=== PATIENT | female | born 1955 | race Caucasian/White ===

== ENCOUNTER → 2017-10-13 | Outpatient (CLI) | payer OTHER ==
[~2017-10-13] MED LIST: AZIT250 PO; BUDE6HFA INH; CEFD300 PO; CLON.5 PO; COMBIVENT RESPIM4 GM INH; COPAXIN; DULO30 PO; DULO60 PO; ERGO400 PO; FISH1000 PO; FURO40 PO; GABA100 PO; GABA600 PO; HYDACE5 PO; LAMO100 PO; LAMO25 PO; LISI5 PO; MELO7.5 PO; METH10; OMEPRAZOLE MAGN20 MG PO; ONDA4ODT MM; POTA10T PO; POTCHL10ER PO; PRED10 PO; PREG50; RANI150; SIMV10 PO; SULTRIDS PO; TRAZ100 PO
[2017-10-16 15:17] LABS: HPV Genotype 16 Not Detected (NOTDET); HPV Genotype 18 Not Detected (NOTDET)
[2017-10-25 07:41] LABS: HPV High Risk Other Not Detected (NOTDET)
== END | disposition home or self-care (01) ==
LOC: LAB 10:06
PROVIDERS: Nurse Practitioner Women's Health
DX: Z12.4 Encounter for screening for malignant neoplasm of cervix (principal); Z91.89 Other specified personal risk factors, not elsewhere classified
CPT/HCPCS: 87624; G0123

== ENCOUNTER → 2017-12-02 | Outpatient (CLI) | payer OTHER | LOC: LAB 13:48 | DX: N39.0 Urinary tract infection, site not specified (principal) | CPT/HCPCS: 87077; 87086; 87186 ==

== ENCOUNTER 2018-06-04 07:49 | Inpatient (IN) | payer OTHER ==
[~2018-06-04] VITALS: Ht 157.5 cm; Wt 105.0 kg
[~2018-06-04 07:49] MED LIST changes: -AZIT250 PO; -BUDE6HFA INH; -CEFD300 PO; -CLON.5 PO; -COMBIVENT RESPIM4 GM INH; -MELO7.5 PO; -POTCHL10ER PO; -PRED10 PO; -TRAZ100 PO
[2018-06-04 08:33] LABS: Source, Urine Clean Catch
[2018-06-04 08:38] LABS: Bilirubin, Urine Neg (Neg); Blood, Urine 5+ (Neg); Glucose Qualitative, Urine Neg (Neg); Ketones, Urine 2+ (Neg); Leukocyte Esterase, Urine 3+ (Neg); Nitrite, Urine Neg (Neg); Protein, Urine 2+ (Neg); Urobilinogen, Urine 2+ (Normal)
[2018-06-04 08:55] LABS: Appearance, Urine Cloudy (Clear); Color, Urine Yellow (P-Yellow)
[2018-06-04 08:56] LABS: White Blood Cells, Urine 50-100 /hpf (0-5)
[2018-06-04 08:59] LABS: Bacteria Many /hpf; Squamous Epithelial Cells Few /hpf (Few)
[2018-06-04] MEDS ORDERED: CLON.5 PO (09:35)
[2018-06-04] MEDS ORDERED: MELO7.5 PO (09:36)
[2018-06-04] MEDS ORDERED: TRAZ100 PO (09:37)
[2018-06-04 09:38] LABS: BASOPHILS ABSOLUTE AUTO 0.05 K/mm3 (0.00-0.23); BASOPHILS PERCENT AUTO 0 % (0-2); EOSINOPHILS PERCENT AUTO 0 % (0-6); Hematocrit 52.8 % (33.0-51.0); IMMATURE GRAN PERCENT AUTO 1 % (0-1); LYMPHOCYTES ABSOLUTE AUTO 1.84 K/mm3 (0.84-5.20); LYMPHOCYTES PERCENT AUTO 11 % (21-46); MONOCYTES ABSOLUTE AUTO 1.02 K/mm3 (0.16-1.47); MONOCYTES PERCENT AUTO 6 % (4-13); Mean Corpuscular HGB 28.5 pg (26.0-34.0); Mean Corpuscular HGB Conc 32.2 g/dL (31.5-36.5); Mean Corpuscular Volume 88 fL (80-100); Mean Platelet Volume 9.8 fL (9.1-12.4); NEUTROPHILS ABSOLUTE AUTO 13.08 K/mm3 (1.96-9.15); NEUTROPHILS PERCENT AUTO 81 % (41-73); Platelet Count 89 K/mm3 (150-400); RDW Coefficient Variation 13.2 % (11.7-14.2); RDW Standard Deviation 42.9 fL (35.1-46.3); Red Blood Cell Count 5.97 M/mm3 (3.80-5.20); White Blood Cell Count 16.09 K/mm3 (4.00-11.30)
[2018-06-04 09:56] LABS: Albumin, Blood 3.2 g/dL (3.4-5.0); Albumin/Globulin Ratio 0.8 (0.8-1.8); Bun/Creatinine Ratio 15.9 (12.0-20.0); Calcium, Blood 8.3 mg/dL (8.5-10.1); Creatinine, Blood 1.45 mg/dL (0.40-1.00); Potassium, Blood 4.3 mmol/L (3.5-5.5); Total Protein, Blood 7.2 g/dL (6.4-8.2)
[2018-06-04 12:08] LABS: PCO2 Arterial 49.9 mmHg (35-45); PO2 Arterial 33.2 mmHg (80-100); pH Blood Arterial 7.34 (7.35-7.45)
[2018-06-04] MEDS ORDERED: POTCHL10ER PO (15:36)
[2018-06-05 03:41] LABS: PCO2 Arterial 45.4 mmHg (35-45); PO2 Arterial 75.8 mmHg (80-100); pH Blood Arterial 7.31 (7.35-7.45)
[2018-06-05 04:35] LABS: BASOPHILS ABSOLUTE AUTO 0.01 K/mm3 (0.00-0.23); BASOPHILS PERCENT AUTO 0 % (0-2); EOSINOPHILS PERCENT AUTO 0 % (0-6); Hematocrit 45.2 % (33.0-51.0); Hemoglobin 14.1 g/dL (11.5-16.0); IMMATURE GRAN PERCENT AUTO 2 % (0-1); LYMPHOCYTES ABSOLUTE AUTO 1.42 K/mm3 (0.84-5.20); LYMPHOCYTES PERCENT AUTO 9 % (21-46); MONOCYTES ABSOLUTE AUTO 0.32 K/mm3 (0.16-1.47); MONOCYTES PERCENT AUTO 2 % (4-13); Mean Corpuscular HGB 28.7 pg (26.0-34.0); Mean Corpuscular HGB Conc 31.2 g/dL (31.5-36.5); Mean Platelet Volume 10.5 fL (9.1-12.4); NEUTROPHILS ABSOLUTE AUTO 13.83 K/mm3 (1.96-9.15); NEUTROPHILS PERCENT AUTO 87 % (41-73); Platelet Count 76 K/mm3 (150-400); RDW Coefficient Variation 13.4 % (11.7-14.2); RDW Standard Deviation 45.4 fL (35.1-46.3); Red Blood Cell Count 4.92 M/mm3 (3.80-5.20); White Blood Cell Count 15.88 K/mm3 (4.00-11.30)
[2018-06-05 04:39] LABS: Mean Corpuscular Volume 92 fL (80-100)
[2018-06-05 04:57] LABS: BAND PERCENT MAN 14 % (0-8); BASOPHILS PERCENT MAN 0 % (0-2); EOSINOPHILS PERCENT MAN 0 % (0-6); LYMPHOCYTES ABSOLUTE MAN 0.63 K/mm3 (0.84-5.20); LYMPHOCYTES PERCENT MAN 4 % (21-46); MONOCYTES PERCENT MAN 0 % (4-13); NEUTROPHILS ABSOLUTE MAN 15.24 K/mm3 (1.96-9.15); SEG NEUTROPHILS PERCENT MAN 82 % (41-73); TOTAL CELLS COUNTED 100
[2018-06-05 04:58] LABS: Alanine Aminotransfer (ALT/SGP 16 U/L (12-78); Albumin, Blood 2.5 g/dL (3.4-5.0); Albumin/Globulin Ratio 0.7 (0.8-1.8); Alk Phos 71 U/L (50-136); Anion Gap 6 mmol/L (6-16); Aspartate Aminotrans (AST/SGOT 16 U/L (12-37); Bilirubin, Total 0.7 mg/dL (0.1-1.0); Blood Urea Nitrogen 21 mg/dL (8-24); Bun/Creatinine Ratio 22.3 (12.0-20.0); CO2, Blood 25 mmol/L (21-32); Calcium, Blood 7.3 mg/dL (8.5-10.1); Chloride, Blood 112 mmol/L (98-108); Creatinine, Blood 0.94 mg/dL (0.40-1.00); Globulin, Blood 3.5 g/dL (2.2-4.0); Glomerular Filtration Rate >60 (60-); Glucose, Blood 135 mg/dL (70-99); Potassium, Blood 4.2 mmol/L (3.5-5.5); Sodium, Blood 143 mmol/L (136-145)
[2018-06-06 08:34] LABS: BASOPHILS ABSOLUTE AUTO 0.01 K/mm3 (0.00-0.23); BASOPHILS PERCENT AUTO 0 % (0-2); EOSINOPHILS PERCENT AUTO 0 % (0-6); Hematocrit 42.4 % (33.0-51.0); Hemoglobin 13.6 g/dL (11.5-16.0); IMMATURE GRAN ABSOLUTE AUTO 0.32 K/mm3 (0.00-0.10); IMMATURE GRAN PERCENT AUTO 2 % (0-1); LYMPHOCYTES ABSOLUTE AUTO 1.54 K/mm3 (0.84-5.20); LYMPHOCYTES PERCENT AUTO 12 % (21-46); MONOCYTES ABSOLUTE AUTO 0.49 K/mm3 (0.16-1.47); MONOCYTES PERCENT AUTO 4 % (4-13); Mean Corpuscular HGB 28.8 pg (26.0-34.0); Mean Corpuscular HGB Conc 32.1 g/dL (31.5-36.5); Mean Corpuscular Volume 90 fL (80-100); Mean Platelet Volume 11.3 fL (9.1-12.4); NEUTROPHILS ABSOLUTE AUTO 10.93 K/mm3 (1.96-9.15); NEUTROPHILS PERCENT AUTO 82 % (41-73); Platelet Count 67 K/mm3 (150-400); RDW Coefficient Variation 13.4 % (11.7-14.2); Red Blood Cell Count 4.72 M/mm3 (3.80-5.20); White Blood Cell Count 13.29 K/mm3 (4.00-11.30)
[2018-06-06 08:44] LABS: Anion Gap 6 mmol/L (6-16); Blood Urea Nitrogen 21 mg/dL (8-24); Bun/Creatinine Ratio 29.2 (12.0-20.0); CO2, Blood 26 mmol/L (21-32); Calcium, Blood 8.1 mg/dL (8.5-10.1); Chloride, Blood 112 mmol/L (98-108); Creatinine, Blood 0.72 mg/dL (0.40-1.00); Glomerular Filtration Rate >60 (60-); Glucose, Blood 147 mg/dL (70-99); Potassium, Blood 4.1 mmol/L (3.5-5.5); Sodium, Blood 144 mmol/L (136-145)
[2018-06-06] MEDS ORDERED: AZIT250 PO (12:28)
[2018-06-06] MEDS ORDERED: PRED10 PO (12:32)
[2018-06-06] MEDS ORDERED: BUDE6HFA INH (12:33)
[2018-06-06] MEDS ORDERED: CEFD300 PO (12:35)
[2018-06-06] MEDS ORDERED: COMBIVENT RESPIM4 GM INH (12:37)
== END 2018-06-06 13:01 | disposition home or self-care (01) | DRG 871 ==
LOC: ER 07:49 → ICUW 07:50 → ER 07:50 → PCU 13:48 → ICUW 13:49 → PCU 06-05 14:40
PROVIDERS: Emergency Medicine; Internal Medicine; Internal Medicine Critical Care Medicine
DX: A41.9 Sepsis, unspecified organism (principal); J18.9 Pneumonia, unspecified organism; J96.02 Acute respiratory failure with hypercapnia; J96.01 Acute respiratory failure with hypoxia; N39.0 Urinary tract infection, site not specified; E87.2 Acidosis; N17.9 Acute kidney failure, unspecified; J44.1 Chronic obstructive pulmonary disease with (acute) exacerbation; J44.0 Chronic obstructive pulmonary disease with (acute) lower respiratory infection; Z68.41 Body mass index [BMI] 40.0-44.9, adult; R65.20 Severe sepsis without septic shock; G35 Multiple sclerosis; I10 Essential (primary) hypertension; G47.33 Obstructive sleep apnea (adult) (pediatric); E66.01 Morbid (severe) obesity due to excess calories; Z66 Do not resuscitate; F17.210 Nicotine dependence, cigarettes, uncomplicated; Z99.81 Dependence on supplemental oxygen; Z88.5 Allergy status to narcotic agent; Z88.8 Allergy status to other drugs, medicaments and biological substances; Z79.1 Long term (current) use of non-steroidal anti-inflammatories (NSAID); Z79.899 Other long term (current) drug therapy
CPT/HCPCS: 36415; 36600; 51702; 71045; 80048; 80053; 81001; 82803; 82947; 83605; 85025; 87077; 87086; 87186; 93970; 94640; 94760; 96361; 96365; 96375; 97162; 97530; 99285-25; G8978; G8979; J0456; J0696; J1170; J1650; J2920; J7030; J7050; J7120

== ENCOUNTER → 2018-10-28 | Outpatient (CLI) | payer OTHER ==
[~2018-10-28] MED LIST changes: +AZIT250 PO; +BUDE6HFA INH; +CEFD300 PO; +CLON.5 PO; +COMBIVENT RESPIM4 GM INH; +MELO7.5 PO; +POTCHL10ER PO; +PRED10 PO; +TRAZ100 PO
== END ==
LOC: LAB SHORT 13:25 → LAB 13:25
DX: N39.0 Urinary tract infection, site not specified (principal)
CPT/HCPCS: 87086

== ENCOUNTER → 2019-10-13 | Outpatient (CLI) | payer OTHER | END | disposition home or self-care (01) | LOC: LAB 18:17 → LAB SHORT 18:17 | DX: N39.0 Urinary tract infection, site not specified (principal) | CPT/HCPCS: 87077; 87086; 87186 ==

== ENCOUNTER 2019-12-02 19:00 | Emergency (ER) | payer OTHER ==
[~2019-12-02] VITALS: Ht 157.5 cm; Wt 95.2 kg
[2019-12-02 19:38] LABS: BASOPHILS ABSOLUTE AUTO 0.06 K/mm3 (0.00-0.23); BASOPHILS PERCENT AUTO 0 % (0-2); EOSINOPHILS PERCENT AUTO 0 % (0-6); Hematocrit 49.5 % (33.0-51.0); Hemoglobin 16.1 g/dL (11.5-16.0); IMMATURE GRAN ABSOLUTE AUTO 0.21 K/mm3 (0.00-0.10); IMMATURE GRAN PERCENT AUTO 1 % (0-1); LYMPHOCYTES ABSOLUTE AUTO 0.83 K/mm3 (0.84-5.20); LYMPHOCYTES PERCENT AUTO 5 % (21-46); MONOCYTES ABSOLUTE AUTO 0.76 K/mm3 (0.16-1.47); MONOCYTES PERCENT AUTO 5 % (4-13); Mean Corpuscular HGB 29.1 pg (26.0-34.0); Mean Corpuscular HGB Conc 32.5 g/dL (31.5-36.5); Mean Corpuscular Volume 89 fL (80-100); Mean Platelet Volume 10.8 fL (9.1-12.4); NEUTROPHILS ABSOLUTE AUTO 13.84 K/mm3 (1.96-9.15); NEUTROPHILS PERCENT AUTO 88 % (41-73); Platelet Count 197 K/mm3 (150-400); RDW Standard Deviation 42.5 fL (35.1-46.3); Red Blood Cell Count 5.54 M/mm3 (3.80-5.20)
[2019-12-02 19:55] LABS: Albumin/Globulin Ratio 0.5 (0.8-1.8); Bilirubin, Total 0.9 mg/dL (0.1-1.0); Bun/Creatinine Ratio 15.1 (12.0-20.0); Calcium, Blood 7.7 mg/dL (8.5-10.1); Globulin, Blood 4.4 g/dL (2.2-4.0); Magnesium, Blood 1.4 mg/dL (1.6-2.4); Potassium, Blood 2.7 mmol/L (3.5-5.5); Total Protein, Blood 6.4 g/dL (6.4-8.2)
[2019-12-02 20:09] LABS: Source, Urine Catheter
[2019-12-02 20:12] LABS: Blood, Urine 1+ (Neg); Glucose Qualitative, Urine Neg (Neg); Ketones, Urine 1+ (Neg); Leukocyte Esterase, Urine 3+ (Neg); Nitrite, Urine Neg (Neg); Protein, Urine 3+ (Neg); Urobilinogen, Urine 4+ (Normal)
[2019-12-02 20:13] LABS: Appearance, Urine Hazy (Clear); Bilirubin, Urine 2+ (Neg); Color, Urine Orange (P-Yellow)
[2019-12-02 20:21] LABS: Bacteria Many /hpf; Mucus Light (0-Heavy); Red Blood Cells, Urine 0-2 /hpf (0-2); Squamous Epithelial Cells Mod /hpf (Few)
[2019-12-02 20:22] LABS: Amorphous Light (0-Heavy)
[2019-12-02 21:42] LABS: Adenovirus Not Detected (NOT DETECT); Coronavirus 229E Not Detected (NOT DETECT); Coronavirus HKU1 Not Detected (NOT DETECT); Coronavirus NL63 Not Detected (NOT DETECT); Coronavirus OC43 Not Detected (NOT DETECT); Human Metapneumovirus Not Detected (NOT DETECT); Human Rhinovirus/Enterovirus Not Detected (NOT DETECT); Influenza A/2009-H1 Not Detected (NOT DETECT); Influenza A/H1 Not Detected (NOT DETECT); Influenza A/H3 Not Detected (NOT DETECT); Influenza B Not Detected (NOT DETECT); Parainfluenza Virus 1 Not Detected (NOT DETECT); Parainfluenza Virus 2 Not Detected (NOT DETECT); Parainfluenza Virus 3 Not Detected (NOT DETECT); Parainfluenza Virus 4 Not Detected (NOT DETECT)
[2019-12-02 21:43] LABS: Bordetella pertussis Not Detected (NOT DETECT); Chlamydophila pneumoniae Not Detected (NOT DETECT); Mycoplasma pneumoniae Not Detected (NOT DETECT); Respiratory Syncytial Virus Not Detected (NOT DETECT)
== END 2019-12-02 23:09 | disposition short-term general hospital (02) ==
LOC: ER 19:00
PROVIDERS: Emergency Medicine
DX: N13.6 Pyonephrosis (principal); E87.6 Hypokalemia; E83.42 Hypomagnesemia; G35 Multiple sclerosis; F17.210 Nicotine dependence, cigarettes, uncomplicated
CPT/HCPCS: 0099U; 36415; 71045; 74176; 76705; 80053; 81001; 83605; 83735; 85025; 87086; 93005; 93010; 96365; 96366; 96368; 99285-25; J0696; J3475; P9612

== ENCOUNTER → 2019-12-13 | Outpatient (CLI) | payer OTHER | LOC: LAB EV 12:27 → LAB SHORT 12:27 | DX: R32 Unspecified urinary incontinence (principal) | CPT/HCPCS: 87086 ==

== ENCOUNTER → 2020-02-06 | Outpatient (CLI) | payer OTHER | LOC: LAB 18:37 → LAB SHORT 18:37 | DX: N39.0 Urinary tract infection, site not specified (principal) | CPT/HCPCS: 87077; 87086; 87186 ==

== ENCOUNTER 2020-03-04 12:30 | Inpatient (IN) | payer OTHER ==
[~2020-03-04] VITALS: Ht 167.6 cm; Wt 98.8 kg
[~2020-03-04 12:30] MED LIST changes: -DULO60 PO; -GABA600 PO; -MELO7.5 PO; -OMEPRAZOLE MAGN20 MG PO; -SIMV10 PO; -TRAZ100 PO
[2020-03-04 13:29] LABS: PCO2 Arterial 51.2 mmHg (35-45); PO2 Arterial 59.4 mmHg (80-100); pH Blood Arterial 7.36 (7.35-7.45)
[2020-03-04 13:30] LABS: BASOPHILS ABSOLUTE AUTO 0.04 K/mm3 (0.00-0.23); BASOPHILS PERCENT AUTO 0 % (0-2); EOSINOPHILS ABSOLUTE AUTO 0.02 K/mm3 (0.00-0.68); EOSINOPHILS PERCENT AUTO 0 % (0-6); Hemoglobin 15.5 g/dL (11.5-16.0); IMMATURE GRAN ABSOLUTE AUTO 0.06 K/mm3 (0.00-0.10); IMMATURE GRAN PERCENT AUTO 0 % (0-1); LYMPHOCYTES ABSOLUTE AUTO 2.75 K/mm3 (0.84-5.20); LYMPHOCYTES PERCENT AUTO 20 % (21-46); MONOCYTES PERCENT AUTO 9 % (4-13); Mean Corpuscular HGB 29.5 pg (26.0-34.0); Mean Corpuscular Volume 95 fL (80-100); Mean Platelet Volume 9.8 fL (9.1-12.4); NEUTROPHILS ABSOLUTE AUTO 9.94 K/mm3 (1.96-9.15); NEUTROPHILS PERCENT AUTO 71 % (41-73); Platelet Count 198 K/mm3 (150-400); RDW Coefficient Variation 13.1 % (11.7-14.2); RDW Standard Deviation 46.2 fL (35.1-46.3); Red Blood Cell Count 5.25 M/mm3 (3.80-5.20); White Blood Cell Count 14.11 K/mm3 (4.00-11.30)
[2020-03-04 13:44] LABS: International Normalized Ratio 1.01; Prothrombin Time Results 10.8 Sec (9.7-11.5)
[2020-03-04 13:52] LABS: Alanine Aminotransfer (ALT/SGP 13 U/L (12-78); Albumin, Blood 2.8 g/dL (3.4-5.0); Albumin/Globulin Ratio 0.7 (0.8-1.8); Alk Phos 92 U/L (50-136); Anion Gap 3 mmol/L (6-16); Aspartate Aminotrans (AST/SGOT 23 U/L (12-37); Bilirubin, Total 0.6 mg/dL (0.1-1.0); Blood Urea Nitrogen 15 mg/dL (8-24); Bun/Creatinine Ratio 20.7 (12.0-20.0); CO2, Blood 27 mmol/L (21-32); Chloride, Blood 109 mmol/L (98-108); Creatinine, Blood 0.72 mg/dL (0.40-1.00); Globulin, Blood 4.3 g/dL (2.2-4.0); Glomerular Filtration Rate >60 (60-); Glucose, Blood 97 mg/dL (70-99); Potassium, Blood 5.4 mmol/L (3.5-5.5); Sodium, Blood 139 mmol/L (136-145); Total Protein, Blood 7.1 g/dL (6.4-8.2); Troponin I 0.051 ng/mL (0.000-0.040)
[2020-03-04 14:46] LABS: Source, Urine Catheter
[2020-03-04 14:50] LABS: Bilirubin, Urine Neg (Neg); Blood, Urine 5+ (Neg); Glucose Qualitative, Urine Neg (Neg); Ketones, Urine 2+ (Neg); Leukocyte Esterase, Urine 3+ (Neg); Nitrite, Urine Neg (Neg); Protein, Urine 3+ (Neg); Specific Gravity, Urine 1.015 (1.003-1.022); Urobilinogen, Urine 2+ (Normal)
[2020-03-04 14:51] LABS: Appearance, Urine Cloudy (Clear); Color, Urine Brown (P-Yellow)
[2020-03-04 14:52] LABS: Amorphous Light (0-Heavy); Bacteria Many /hpf; Hyaline Casts 0-2 /lpf (0-2); Mucus Mod (0-Heavy); Squamous Epithelial Cells Mod /hpf (Few); White Blood Cells, Urine 50-100 /hpf (0-5)
[2020-03-04 15:07] LABS: U Amphetamine Screen Not Detected; U Barbituate Screen Not Detected; U Benzodiazapine Screen Not Detected; U Buprenorphine Screen Not Detected; U Cannabinoids Screen DETECTED; U Cocaine Screen Not Detected; U Methadone Screen Not Detected; U Methamphetamine Screen Not Detected; U Opiates Screen DETECTED; U Oxycodone Screen Not Detected; U Phencyclidine Screen Not Detected; U Propoxyphene Screen Not Detected
[2020-03-04] MEDS ORDERED: DULO60 PO (15:46)
[2020-03-04] MEDS ORDERED: OMEPRAZOLE MAGN20 MG PO (15:46)
[2020-03-04] MEDS ORDERED: GABA600 PO (15:47)
[2020-03-04] MEDS ORDERED: MELO7.5 PO (15:48)
[2020-03-04] MEDS ORDERED: TRAZ100 PO (15:48)
[2020-03-04] MEDS ORDERED: SIMV40 PO (15:48)
[2020-03-04] MEDS ORDERED: MIDO5 PO (15:49)
[2020-03-04] MEDS ORDERED: OXYB5 PO (15:50)
[2020-03-04] MEDS ORDERED: HYDMOR4 PO (15:51)
--- NOTE | 2020-03-04 18:41 | NUR ---
SHIFT SUMMARY. 173 PT ADMITTED TO MEDICAL FLOOR VIA GURNEY, PT SLIDE TRANSFERED TO BED WITH STAFF. PT INCONTINENT OF URINE, INCONTINENCE CARE PERFORMED. URINE TEA COLORED AND VERY FOWL SMELLING. PT ON 4L O2 NC. R LUNG COARSE T/O, PT WITH DRY NON PRODUCTIVE COUGH. PT REPORTS DYSPHAGIA WITH MEAT. PT REPORTED THAT SHE HAS POLST FORM AT HOME THAT STATES DNR, PT REPORTS THAT SHE WOULD LIKE TO BE DNR WHILE HOSPITALIZED, DR. AVALOS NOTIFIED AND HE REPORTED THAT HE CONFIRMED HER POLST INFORMATION WITHIN THE RECORDS. PT REPORTS PAIN TO RLQ, SHE REPORTS PAIN IS SECONDARY TO RENAL CALCULI. PT REPORTS PAIN TO BLE THAT IS CHRONIC AND R/T MS. A&OX3, PT HAD DIFFICULTY WITH PLACE, AND YEAR, PT IS LETHARGIC. ANSWERS MOST QUESTIONS APPROPRIATELY. BED ALARM ON FOR SAFETY. DR. AVALOS PLACING ORDERS AT THIS TIME.
--- NOTE | 2020-03-05 04:40 | NUR ---
SHIFT SUMMARY DR AVALOS @ BEDSIDE AT START OF SHIFT, PT LETHARGIC BUT RESPONSIVE TO VOICE, A&O, C/O FLANK PAIN BUT REFUSED PAIN MEDS, STATED SHE JUST NEEDED TO SIT UP FOR A WHILE, ASSISTED PT W/REPOS AND SHE QUICKLY RETURNED TO SLEEP. BOTH DAUGHTERS CALLED FOR UPDATE- PT GAVE VERBAL CONSENT FOR RELEASE OF INFORMATION, ADDED TO CHART, PT HAS BEEN INCONT OF URINE & SLEEPING T/O SHIFT- BRIEF CHANGES & REPOS Q2. DAUGHTER (ANNITA) IS ALSO CG- STATES PT IS NORMALLY AMBULATORY- HOLDING FURINTURE & DAN TO MOVE ABOUT BETWEEN LIFT CHAIR, BED & BATHROOM; DAUGHTER ALSO STATES PT HAS PEYMAN & IS UNABLE TO TOLERATE CPAP & WEAR 4L 02 NOC & IS RA WHILE AWAKE. PT SLEPT T/O NIGHT & IS SLEEPING AT THIS TIME, CALL LIGHT IN REACH, WILL CONT TO MONTIOR UNTIL REPORT GIVEN TO DAY RN.
[2020-03-05 05:11] LABS: BASOPHILS ABSOLUTE AUTO 0.02 K/mm3 (0.00-0.23); BASOPHILS PERCENT AUTO 0 % (0-2); EOSINOPHILS ABSOLUTE AUTO 0.09 K/mm3 (0.00-0.68); EOSINOPHILS PERCENT AUTO 1 % (0-6); Hemoglobin 13.2 g/dL (11.5-16.0); IMMATURE GRAN ABSOLUTE AUTO 0.03 K/mm3 (0.00-0.10); IMMATURE GRAN PERCENT AUTO 0 % (0-1); LYMPHOCYTES ABSOLUTE AUTO 2.85 K/mm3 (0.84-5.20); LYMPHOCYTES PERCENT AUTO 28 % (21-46); MONOCYTES ABSOLUTE AUTO 0.75 K/mm3 (0.16-1.47); MONOCYTES PERCENT AUTO 8 % (4-13); Mean Corpuscular HGB 29.3 pg (26.0-34.0); Mean Corpuscular HGB Conc 30.7 g/dL (31.5-36.5); Mean Corpuscular Volume 96 fL (80-100); NEUTROPHILS ABSOLUTE AUTO 6.28 K/mm3 (1.96-9.15); NEUTROPHILS PERCENT AUTO 63 % (41-73); Platelet Count 150 K/mm3 (150-400); RDW Coefficient Variation 12.9 % (11.7-14.2); RDW Standard Deviation 45.2 fL (35.1-46.3); White Blood Cell Count 10.02 K/mm3 (4.00-11.30)
[2020-03-05 05:34] LABS: Anion Gap 2 mmol/L (6-16); Blood Urea Nitrogen 13 mg/dL (8-24); CO2, Blood 28 mmol/L (21-32); Calcium, Blood 7.4 mg/dL (8.5-10.1); Chloride, Blood 114 mmol/L (98-108); Creatinine, Blood 0.54 mg/dL (0.40-1.00); Glomerular Filtration Rate >60 (60-); Glucose, Blood 72 mg/dL (70-99); Potassium, Blood 3.9 mmol/L (3.5-5.5); Sodium, Blood 144 mmol/L (136-145)
--- NOTE | 2020-03-05 07:22 | NUR ---
ASSUMED PATIENT CARE. PATIENT RESTING COMFORTABLY IN BED, CONVERSING WITH NURSING STAFF. NO SIGNS OF ACUTE DISTRESS, WCTM.
--- NOTE | 2020-03-05 18:04 | NUR ---
NO ACUTE EVENTS THIS SHIFT. PATIENT COMPLAINED OF BACK PAIN THIS SHIFT, PATIENT ENDORSED RELIEF FROM TYLENOL AND DILAUDID PO. PO INTAKE ENCOURAGED THROUGH SHIFT. VSS STABLE THIS SHIFT, PATIENT ASSISTED IN REPOSITIONING THROUGHOUT SHIFT. IV ABX CONTINUED. PATIENT'S DAUGHTER CALLED MULTIPLE TIMES THROUGH SHIFT, CONCERNED ABOUT PATIENT'S OUTPUT, PATIENT HAS HAD MULTIPLE UNMEASURABLE VOIDS THIS SHIFT IN BRIEF, WHICH WERE SATURATED. PATIENT'S DAUGHTER CALLED AND LEFT MESSAGE THAT UROLOGIST IN [place] WOULD LIKE TO TRANSFER PATIENT TO [facility]. DR. STEWART NOTIFIED, DR. STEWART WILL CALL DAUGHTER TOMORROW TO DISCUSS TRANSFER PLAN.
--- NOTE | 2020-03-05 19:35 | NUR ---
RELINQUISHED PATIENT CARE.
--- NOTE | 2020-03-06 04:53 | NUR ---
SHIFT SUMMARY PT HAS HAD NO ACUTE CHANGES THIS SHIFT, C/O BACK PAIN -STATED "FROM HOSP BED", APPLIED EGG CRATE & ADMIN PAIN MEDS, PT REPORTED RELIEF & SLEPT T/O THE NIGHT. WOKE PT FOR BRIEF CHANGES T/O SHIFT, PT SLEEPING AT THIS TIME, CALL LIGHT IN REACH, WILL CONT TO MONITOR UNTIL REPORT GIVEN TO DAY RN.
[2020-03-06 05:23] LABS: BASOPHILS ABSOLUTE AUTO 0.02 K/mm3 (0.00-0.23); BASOPHILS PERCENT AUTO 0 % (0-2); EOSINOPHILS ABSOLUTE AUTO 0.11 K/mm3 (0.00-0.68); EOSINOPHILS PERCENT AUTO 2 % (0-6); Hematocrit 41.5 % (33.0-51.0); Hemoglobin 12.8 g/dL (11.5-16.0); IMMATURE GRAN ABSOLUTE AUTO 0.02 K/mm3 (0.00-0.10); IMMATURE GRAN PERCENT AUTO 0 % (0-1); LYMPHOCYTES ABSOLUTE AUTO 2.05 K/mm3 (0.84-5.20); LYMPHOCYTES PERCENT AUTO 28 % (21-46); MONOCYTES ABSOLUTE AUTO 0.66 K/mm3 (0.16-1.47); MONOCYTES PERCENT AUTO 9 % (4-13); Mean Corpuscular HGB 29.3 pg (26.0-34.0); Mean Corpuscular HGB Conc 30.8 g/dL (31.5-36.5); Mean Corpuscular Volume 95 fL (80-100); Mean Platelet Volume 9.8 fL (9.1-12.4); NEUTROPHILS ABSOLUTE AUTO 4.53 K/mm3 (1.96-9.15); NEUTROPHILS PERCENT AUTO 61 % (41-73); Platelet Count 151 K/mm3 (150-400); RDW Coefficient Variation 12.4 % (11.7-14.2); RDW Standard Deviation 43.1 fL (35.1-46.3); Red Blood Cell Count 4.37 M/mm3 (3.80-5.20); White Blood Cell Count 7.39 K/mm3 (4.00-11.30)
[2020-03-06 05:53] LABS: Anion Gap 5 mmol/L (6-16); Blood Urea Nitrogen 8 mg/dL (8-24); Bun/Creatinine Ratio 14.9 (12.0-20.0); CO2, Blood 26 mmol/L (21-32); Calcium, Blood 7.8 mg/dL (8.5-10.1); Chloride, Blood 111 mmol/L (98-108); Creatinine, Blood 0.54 mg/dL (0.40-1.00); Glomerular Filtration Rate >60 (60-); Glucose, Blood 62 mg/dL (70-99); Potassium, Blood 3.8 mmol/L (3.5-5.5); Sodium, Blood 142 mmol/L (136-145)
--- NOTE | 2020-03-06 15:52 | NUR ---
PATIENT HAS BEEN COOPERATIVE WITH STAFF. SHE CALLS FREQUENTLY TO BE CHANGED FOR VOIDING. SHE TENDS TO RETAIN APPROX 400cc OF URINE POST-VOID RESIDUAL; DR STEWART NOTIFIED OF THIS. VITALS HAVE BEEN STABLE AND WNL. PATIENT CONTINUES ON IV ABX WITHOUT S/SX OF ADVERSE REACTIONS NOTED OR REPORTED. PATIENT REMAINS BEDBOUND. WILL CONTINUE TO MONITOR AND PROVIDE CARE NEEDED.
--- NOTE | 2020-03-06 22:47 | NUR ---
POST VOID RESIDULE OF 463 ML. HOSPITALIST ANKIT NOTIFIED. HALE SWATI ORDERED.
[2020-03-07 05:13] LABS: BASOPHILS ABSOLUTE AUTO 0.01 K/mm3 (0.00-0.23); BASOPHILS PERCENT AUTO 0 % (0-2); EOSINOPHILS ABSOLUTE AUTO 0.17 K/mm3 (0.00-0.68); EOSINOPHILS PERCENT AUTO 2 % (0-6); Hematocrit 43.5 % (33.0-51.0); Hemoglobin 13.8 g/dL (11.5-16.0); IMMATURE GRAN ABSOLUTE AUTO 0.02 K/mm3 (0.00-0.10); IMMATURE GRAN PERCENT AUTO 0 % (0-1); LYMPHOCYTES ABSOLUTE AUTO 1.94 K/mm3 (0.84-5.20); LYMPHOCYTES PERCENT AUTO 26 % (21-46); MONOCYTES ABSOLUTE AUTO 0.67 K/mm3 (0.16-1.47); MONOCYTES PERCENT AUTO 9 % (4-13); Mean Corpuscular HGB 29.7 pg (26.0-34.0); Mean Corpuscular HGB Conc 31.7 g/dL (31.5-36.5); Mean Corpuscular Volume 94 fL (80-100); Mean Platelet Volume 9.7 fL (9.1-12.4); NEUTROPHILS ABSOLUTE AUTO 4.68 K/mm3 (1.96-9.15); NEUTROPHILS PERCENT AUTO 63 % (41-73); Platelet Count 156 K/mm3 (150-400); RDW Coefficient Variation 12.6 % (11.7-14.2); RDW Standard Deviation 42.7 fL (35.1-46.3); Red Blood Cell Count 4.64 M/mm3 (3.80-5.20); White Blood Cell Count 7.49 K/mm3 (4.00-11.30)
[2020-03-07 05:38] LABS: Anion Gap 4 mmol/L (6-16); Blood Urea Nitrogen 5 mg/dL (8-24); Bun/Creatinine Ratio 9.8 (12.0-20.0); CO2, Blood 29 mmol/L (21-32); Calcium, Blood 8.2 mg/dL (8.5-10.1); Chloride, Blood 110 mmol/L (98-108); Creatinine, Blood 0.51 mg/dL (0.40-1.00); Glomerular Filtration Rate >60 (60-); Glucose, Blood 83 mg/dL (70-99); Potassium, Blood 3.5 mmol/L (3.5-5.5); Sodium, Blood 143 mmol/L (136-145)
--- NOTE | 2020-03-07 05:45 | NUR ---
STORY WRITER SUMMARY PT A/O X4. I HAD INSERT A COUDE PREVIOUS SWATI DID NOT DRAIN PROPERTY AND URINE LEAKED AROUND IT. 16 G COUDE INSERTED. PT TOLERATED WELL. DRAINING CLOUDY YELLOW URINE. VSS. MEDICATED FOR PAIN PER EMAR. FREQUENT REPOSITIONG PROVIDED. CONT NS RUNNING AT 75/HR.
--- NOTE | 2020-03-07 10:47 | NUR ---
A/O AND PLEASANT/COOP. HX MS AND LIFT NEEDED FOR TRANSFERS. 100% BREAKFAST TAKEN IN.
[2020-03-07] MEDS ORDERED: LEVFLO500 PO (13:55)
--- NOTE | 2020-03-07 15:18 | NUR ---
PT DISCHARGED WITH CAREGIVER TO HOME. PT VERBALIZED UNDERSTANDING OF MEDICATION AND DISCHARGE INSTRUCTIONS.
== END 2020-03-07 15:14 | disposition home or self-care (01) | DRG 698 ==
LOC: ER 12:30 → MEDS 15:15
PROVIDERS: Emergency Medicine; Physician Assistant; ADMIT Internal Medicine Endocrinology, Diabetes & Metabolism
DX: T83.511A Infection and inflammatory reaction due to indwelling urethral catheter, initial encounter (principal); A41.51 Sepsis due to Escherichia coli [E. coli]; A41.81 Sepsis due to Enterococcus; G92 Toxic encephalopathy; N39.0 Urinary tract infection, site not specified; G35 Multiple sclerosis; F17.210 Nicotine dependence, cigarettes, uncomplicated; G47.33 Obstructive sleep apnea (adult) (pediatric); F32.9 Major depressive disorder, single episode, unspecified; K21.9 Gastro-esophageal reflux disease without esophagitis; R32 Unspecified urinary incontinence; K59.09 Other constipation; J44.9 Chronic obstructive pulmonary disease, unspecified; I10 Essential (primary) hypertension; Z66 Do not resuscitate; D75.1 Secondary polycythemia; E66.9 Obesity, unspecified; Z68.36 Body mass index [BMI] 36.0-36.9, adult
CPT/HCPCS: 36415; 36600; 70450; 71045; 74176; 80048; 80053; 81001; 82803; 83605; 84484; 85025; 85610; 85730; 87077; 87086; 87186; 93005; 93010; 96361-59; 96365-59; 96375-59; 99285-25; A9270; J0456; J0696; J1650; J7030; J7050; P9612

== ENCOUNTER 2020-12-18 08:17 | Inpatient (IN) | payer OTHER, MEDICARE ==
[~2020-12-18] VITALS: Ht 160 cm; Wt 75.6 kg
[~2020-12-18 08:17] MED LIST changes: +DULO60 PO; +GABA600 PO; +HYDMOR4 PO; +LEVFLO500 PO; +MELO7.5 PO; +MIDO5 PO; +OMEPRAZOLE MAGN20 MG PO; +OXYB5 PO; +SIMV40 PO; +TRAZ100 PO
[2020-12-18 08:34] LABS: Source, Urine Clean Catch
[2020-12-18] MEDS ORDERED: FURO40 PO (08:40)
[2020-12-18] MEDS ORDERED: POTA10T PO (08:40)
[2020-12-18 08:47] LABS: Appearance, Urine Hazy (Clear); Bilirubin, Urine Neg (Neg); Blood, Urine 5+ (Neg); Color, Urine Yellow (P-Yellow); Glucose Qualitative, Urine Neg (Neg); Ketones, Urine 2+ (Neg); Leukocyte Esterase, Urine 3+ (Neg); Nitrite, Urine Neg (Neg); Protein, Urine 2+ (Neg); Urobilinogen, Urine 2+ (Normal)
[2020-12-18 09:02] LABS: Red Blood Cells, Urine 25-50 /hpf (0-2); White Blood Cells, Urine TNTC /hpf (0-5)
[2020-12-18 09:03] LABS: Bacteria Many /hpf; Squamous Epithelial Cells Few /hpf (Few)
[2020-12-18 09:15] LABS: BASOPHILS ABSOLUTE AUTO 0.07 K/mm3 (0.00-0.23); BASOPHILS PERCENT AUTO 0 % (0-2); EOSINOPHILS PERCENT AUTO 0 % (0-6); Hemoglobin 17.8 g/dL (11.5-16.0); IMMATURE GRAN ABSOLUTE AUTO 0.23 K/mm3 (0.00-0.10); IMMATURE GRAN PERCENT AUTO 1 % (0-1); LYMPHOCYTES ABSOLUTE AUTO 1.64 K/mm3 (0.84-5.20); LYMPHOCYTES PERCENT AUTO 7 % (21-46); MONOCYTES ABSOLUTE AUTO 2.09 K/mm3 (0.16-1.47); MONOCYTES PERCENT AUTO 8 % (4-13); Mean Corpuscular HGB 29.1 pg (26.0-34.0); Mean Corpuscular Volume 91 fL (80-100); NEUTROPHILS ABSOLUTE AUTO 20.85 K/mm3 (1.96-9.15); NEUTROPHILS PERCENT AUTO 84 % (41-73); Platelet Count 146 K/mm3 (150-400); RDW Coefficient Variation 14.3 % (11.7-14.2); RDW Standard Deviation 47.5 fL (35.1-46.3); Red Blood Cell Count 6.12 M/mm3 (3.80-5.20); White Blood Cell Count 24.88 K/mm3 (4.00-11.30)
[2020-12-18 09:38] LABS: Albumin, Blood 2.7 g/dL (3.4-5.0); Albumin/Globulin Ratio 0.6 (0.8-1.8); Bilirubin, Total 0.9 mg/dL (0.1-1.0); Bun/Creatinine Ratio 18.7 (12.0-20.0); Calcium, Blood 8.8 mg/dL (8.5-10.1); Creatinine, Blood 1.07 mg/dL (0.40-1.00); Globulin, Blood 4.3 g/dL (2.2-4.0); Potassium, Blood 4.7 mmol/L (3.5-5.5)
[2020-12-18 09:40] LABS: Hematocrit 55.7 % (33.0-51.0)
[2020-12-18] MEDS ORDERED: OXYB5 PO (11:46)
[2020-12-18] MEDS ORDERED: NYAMYC15 G1 TOP (11:49)
--- NOTE | 2020-12-18 12:36 | NUR ---
ER ADMIT- PT ARRIVED TO ROOM 333 VIA GURNEY FROM ED AT 1110. PT ORIENTED TO PERSON, PLACE AND YEAR. PT DROWSY AND FALLS ASLEEP EASILY. CAREGIVER AT BEDSIDE. PT REPORTS GENERALIZED PAIN. LS DIMINISHED, 93% ON ROOM AIR, MOIST NPC. HR TACHY. TRACE BLE EDEMA NOTED. LEFT ARM SWOLLEN FROM INFILTRATED IV, IV DC'D. PT CONTINUOUSLY STATES SHE NEEDS TO VOID BUT ONLY VOIDS SMALL AMOUNTS OR NOT AT ALL. PT WITH BRUISING TO BLE, YEAST TO ABDS FOLDS AND UNDER LEFT BREAST. PT WITH GENERALIZED WEAKNESS, PER CAREGIVER PT CAN WALK SMALL DISTANCES AND USES A POWER CHAIR AT BASELINE. PT ORIENTED TO ROOM AND CALL SYSTEM, CALL LIGHT IN REACH. BED ALARM ON.
--- NOTE | 2020-12-18 14:19 | NUR ---
SPOKE WITH DAUGHTER REGARDING CODE STATUS, PER ISIAH HER POLST STATES FULL CODE WITH NO SENIOR CARE TREATMENTS. SHE WAS ASKED IF SHE COULD BRING IN A COPY OF POLST OR ANY TYPE OF ADVANCED DIRECTIVES TO PUT IN THE SYSTEM.
--- NOTE | 2020-12-18 15:44 | NUR ---
PT NOTED TO BE HYPOTENSIVE AT 97/62 HR 122 RESP 18 TEMP 99.7 AND 93% ON RA. PT STILL NOT VOIDING, BLADDER SCAN OF 424. SPOKE WITH DR MERRILL WHO REPORTS TO CHANGE FLUIDS TO NS AT 150ML, NS BOLUS X1L, AND PLACE HALE CATHETER. HE WILL BE IN TO SEE THE PT SHORTLY. PT DROWSY BUT DOES AWAKE FOR A MOMENT. WILL CONT TO MONITOR.
[2020-12-18 16:21] LABS: Source, Urine Catheter
[2020-12-18 16:30] LABS: Appearance, Urine Clear (Clear); Bilirubin, Urine Neg (Neg); Blood, Urine 5+ (Neg); Color, Urine Yellow (P-Yellow); Glucose Qualitative, Urine Neg (Neg); Ketones, Urine 1+ (Neg); Leukocyte Esterase, Urine 2+ (Neg); Nitrite, Urine Neg (Neg); Protein, Urine 2+ (Neg); Urobilinogen, Urine 2+ (Normal)
[2020-12-18] MEDS ORDERED: MIRALAX17 GM PO (16:30)
[2020-12-18] MEDS ORDERED: MUPIROCIN22 G2 TOP (16:30)
--- NOTE | 2020-12-18 16:35 | NUR ---
SHIFT SUMMARY- ER ADMIT THIS SHIFT. PT ORIENTED TO PERSON, PLACE AND YEAR. PT AWAKES AND ANSWERS QUESTIONS BUT QUICKLY FALLS BACK TO SLEEP. PT REPORTS GENERALIZED PAIN BUT UNABLE TO DESCRIBE OR RATE PAIN. LS DIMINISHED, MOIST NPC NOTED. ON ROOM AIR. 1L NS BOLUS GIVEN AND IVF CHANGED TO NS AT 150 FOR HYPOTENSION AND TACHYCARDIA IN THE 110-120'S. HALE PLACED FOR RETENTION. POWERGLIDE TO ALTON PLACED. LEFT ARM IV INFILTRATED BUT SWELLING HAS COME DOWN. MICONAZOLE ORDERED AND PLACED TO YEAST IN ABD FOLDS AND UNDER LEFT BREAST. CAREGIVER AT BEDSIDE SINCE ADMISSION.
[2020-12-18 17:05] LABS: Bacteria Many /hpf; Squamous Epithelial Cells Not Seen /hpf (Few)
--- NOTE | 2020-12-18 18:42 | NUR ---
PT CONTINUES TO COMPLAIN OF GERNALIZED PAIN. SPOKE WITH DR MERRILL AND HOME DULOXETINE AND GABAPENTIN ORDERED. LACTIC ACID DOWN TO 1.4. U/S TECH ALSO NOTED HYDRONEPHROSIS TO RIGHT KIDNEY THAT WAS NOT PRESENT ON CT SCAN A FEW DAYS AGO. DR HANEY NOTIFIED.
--- NOTE | 2020-12-18 19:42 | NUR ---
ADMIT: 12/18/20 DISCHARGE: DX: sepsis CC: cpeabody ADMIT: 03/04/20 DISCHARGE: 03/07/20 DX: Pneumonia, UTI, MS, Weakness CC: CLOTILDE CALL: met with Parisa prior to discharge, call her caregiver Kate for clotilde RESIDENCE: Home CAREGIVER: Kate Restrepo, (caregiver), DX: HTN, GERD, Lung disease, see list DME: Wheelchair, O2 supplies, see list CCM: No record HOME HEALTH: No record SUMMARY: Admit 12/18/20 1: Sepsis A/P: Likely secondary to UTI
[2020-12-19 05:51] LABS: BASOPHILS ABSOLUTE AUTO 0.02 K/mm3 (0.00-0.23); BASOPHILS PERCENT AUTO 0 % (0-2); EOSINOPHILS PERCENT AUTO 0 % (0-6); Hematocrit 42.3 % (33.0-51.0); Hemoglobin 13.6 g/dL (11.5-16.0); IMMATURE GRAN ABSOLUTE AUTO 0.15 K/mm3 (0.00-0.10); IMMATURE GRAN PERCENT AUTO 1 % (0-1); LYMPHOCYTES ABSOLUTE AUTO 1.53 K/mm3 (0.84-5.20); LYMPHOCYTES PERCENT AUTO 8 % (21-46); MONOCYTES ABSOLUTE AUTO 0.99 K/mm3 (0.16-1.47); MONOCYTES PERCENT AUTO 5 % (4-13); Mean Corpuscular HGB 29.4 pg (26.0-34.0); Mean Corpuscular HGB Conc 32.2 g/dL (31.5-36.5); Mean Corpuscular Volume 91 fL (80-100); Mean Platelet Volume 10.8 fL (9.1-12.4); NEUTROPHILS ABSOLUTE AUTO 15.67 K/mm3 (1.96-9.15); NEUTROPHILS PERCENT AUTO 85 % (41-73); Platelet Count 115 K/mm3 (150-400); RDW Coefficient Variation 14.3 % (11.7-14.2); RDW Standard Deviation 47.8 fL (35.1-46.3); Red Blood Cell Count 4.63 M/mm3 (3.80-5.20); White Blood Cell Count 18.36 K/mm3 (4.00-11.30)
[2020-12-19 06:10] LABS: Anion Gap 3 mmol/L (6-16); Blood Urea Nitrogen 17 mg/dL (8-24); Bun/Creatinine Ratio 22.2 (12.0-20.0); CO2, Blood 27 mmol/L (21-32); Calcium, Blood 7.6 mg/dL (8.5-10.1); Chloride, Blood 111 mmol/L (98-108); Creatinine, Blood 0.77 mg/dL (0.40-1.00); Glomerular Filtration Rate >60 (60-); Glucose, Blood 104 mg/dL (70-99); Magnesium, Blood 1.9 mg/dL (1.6-2.4); Sodium, Blood 141 mmol/L (136-145)
--- NOTE | 2020-12-19 08:01 | NUR ---
SHIFT SUMMARY PT IS A 65 Y/O FEMALE, ADMITTED FOR UTI AND SEPSIS. SHE IS A&O X SELF AND FAMILY, VERY LETHARGIC. AT HS, PT WAS C/O LEG PAIN, AND WAS MEDICATED WITH HER SCHEDULED GABAPENTIN. TELE SHOWED ST 110-120S UNTIL APPROXIMATELY 0200 WHEN PT BEGAN SUSTAINING IN 130S. AT THAT TIME VITALS WERE CHECKED, AND ORAL TEMP WAS 102.2. PT WAS GIVEN PO TYLENOL, AND DR JOYA INFORMED. A OT NS BOLUS OF 500 ML WAS GIVEN. PT OTHERWISE ON NS @ 150 ML/HR. AFTER BOLUS AND TYLENOL PT CAME DOWN TO 98.1. NO C/O NAUSEA OR SOB. ALL OTHER VITAL SIGNS STABLE. PER PT DAUGHTER PT DOES HAVE HX OF COPD AND INHALER USE, BD PROTOCOL ORDERED PER DIRECTIONAL DRILLER BELINDA MORAN. NO OTHER ACUTE CHANGES IN PT CONDITION NOTED. REPORT GIVEN TO ONCOMING NEHA.
--- NOTE | 2020-12-19 12:01 | NUR ---
SPOKE WITH DR. MERRILL RE PT LEFT LOWER LEG SWELLING, HOT TO TOUCH AND REDNESS. NO NEW ORDERS OF YET. DR. MERRILL TO SEE PT WITHIN THE HOUR. WILL CONT. TO MONITOR.
--- NOTE | 2020-12-19 18:46 | NUR ---
PT RESTING IN BED AFTER DINNER AND PM MEDICATION ADMIN. PT TEMP REGULATION FLUCTUATED THROUGHOUT SHIFT FROM HOT/HOLD AND RUNS MILD TEMPS CTL WITH MEDICATION PER EMAR. PT LEFT LOWER LEG/FOOT REDNESS HAS RESOLVED ALONG WITH WARMTH AND ULTRASOUND NEG FOR BLOOD CLOTS. . IV ABT'S ADMINISTERED THIS SHIFT AND TOLERATED WELL. ST EVAL PLACED SINCE PT AND FAMILY ARE REQUESTING FOR PT TO HAVE SOLIDS SHE IS NOT EATING HER FULL LIQ DIET. STAFF WILL CONT. TO MONITOR.
--- NOTE | 2020-12-19 23:47 | NUR ---
12/19/[address] MERRILL, MENTATION IMPROVED TODAY, CONCERN FOR REDNESS ON FOOT. IV VANCO ORDERED NO ETA FOR DISCHARGE AT THIS TIME. SPEECH EVAL ORDERED , NO PT OR OT ORDERED YET. 1: SEPSIS
--- NOTE | 2020-12-20 06:16 | NUR ---
INSULATION BOARD COATER OPERATOR SUMMARY PT A&OX3, ABLE TO MAKE NEEDS KNOWN. PLEASANT AND COOPERATIVE TO CARE. PT MEDICATED FOR FEVER PER EMAR. PT 2P MAX WITH BED MOBILITY, REPOSITIONED FOR COMFORT. NO C/O CP, SOB, OR N&V. PT USES 2LPM O2 VIA NC AT NIGHT. HALE PATENT AND DRAINING WELL. PT CALM AND RESTED IN BED T/O SHIFT, BED AT LOWEST POSITION. CALL LIGHT WITHIN REACH.
--- NOTE | 2020-12-20 17:50 | NUR ---
SUMMARY: Admit 12/18/20 12/20/20 Met with Parisa, discussed home care and dme needs, sounds like she has adequate care but may need a new ramp to safely exit her home on her power scooter. No eta for discharge at this time. cp Will call [facility] to see if insurance will cover a new ramp. Will continue to follow for discharge planning. cp
--- NOTE | 2020-12-20 19:37 | NUR ---
SHIFT SUMMARY: NO ACUTE EVENTS. A&O X 3, PLEASANT AND COOPERATIVE. C/O PAIN IN BLE; MEDICATED PER EMAR WITH INADEQUATE RELIEF. DURING MD ROUNDS TODAY, PROVIDER DECLINED TO ORDER ADDITIONAL PAIN MEDICATION BUT MELOXICAM WAS RE-STARTED. GOT INTO CHAIR THIS AFTERNOON, WENT BTB AT ~ 1530. BREATH SOUNDS COARSE THROUGHOUT, RA DURING THE DAY. AFEBRILE, VSS. HAD CG AND DAUGHTER AT BEDSIDE TODAY. HALE D/C'D AROUND NOON, NO VOID BY 1800; BLADDER SCAN SHOWED 446, STRAIGHT CATH X 1 FOR 400 ML OUT. DAUGHTER CONCERNED ABOUT HALE REMOVAL, STATING THAT ON PREVIOUS ADMISSION, PT WENT HOME WITH SEVERE EXCORIATIONS AND WOUNDS FROM WEARING ATTENDS THAT WERE NOT CHANGED FREQUENTLY. SPEECH THERAPY RECOMMENDS PUREED DIET, WHICH PT ABSOLUTELY WILL NOT EAT; ALSO WILL NOT TAKE PILLS IN APPLESAUCE. DIET NEEDS TO BE CHANGED TO MECH SOFT/GROUND MEAT, WHICH PT HAS AGREED TO.
--- NOTE | 2020-12-21 05:20 | NUR ---
SOFTWARE TESTING SPECIALIST SUMMARY NO ACUTE CHANGES NOTED TO PATIENT THIS SHIFT. PT A&OX3, ABLE TO MAKE NEEDS KNOWN. PLEASANT AND COOPERATIVE TO CARE. MEDICATED FOR PAIN PER EMAR. DENIES CP, SOB, OR N&V. NO VOID THIS SHIFT, BLADDERS SCAN SHOWED 601 CC. STRAIGHT CATH ORDERED, 700ML OUTPUT NOTED. PT DENIES DYSURIA. PT CALM AND RESTED IN BED T/O SHIFT. BED AT LOWEST POSITION. CALL LIGHT WITHIN REACH.
[2020-12-21 13:14] LABS: BASOPHILS ABSOLUTE AUTO 0.04 K/mm3 (0.00-0.23); BASOPHILS PERCENT AUTO 0 % (0-2); EOSINOPHILS ABSOLUTE AUTO 0.09 K/mm3 (0.00-0.68); EOSINOPHILS PERCENT AUTO 1 % (0-6); Hematocrit 39.9 % (33.0-51.0); Hemoglobin 13.2 g/dL (11.5-16.0); IMMATURE GRAN ABSOLUTE AUTO 0.05 K/mm3 (0.00-0.10); IMMATURE GRAN PERCENT AUTO 1 % (0-1); LYMPHOCYTES ABSOLUTE AUTO 1.76 K/mm3 (0.84-5.20); LYMPHOCYTES PERCENT AUTO 19 % (21-46); MONOCYTES ABSOLUTE AUTO 1.08 K/mm3 (0.16-1.47); MONOCYTES PERCENT AUTO 11 % (4-13); Mean Corpuscular HGB 29.4 pg (26.0-34.0); Mean Corpuscular HGB Conc 33.1 g/dL (31.5-36.5); Mean Corpuscular Volume 89 fL (80-100); NEUTROPHILS ABSOLUTE AUTO 6.49 K/mm3 (1.96-9.15); NEUTROPHILS PERCENT AUTO 68 % (41-73); Platelet Count 127 K/mm3 (150-400); RDW Coefficient Variation 13.7 % (11.7-14.2); RDW Standard Deviation 44.9 fL (35.1-46.3); Red Blood Cell Count 4.49 M/mm3 (3.80-5.20); White Blood Cell Count 9.51 K/mm3 (4.00-11.30)
--- NOTE | 2020-12-21 13:17 | NUR ---
1015 PT'S DAUGHTER CALLED FOR UPDATE; DAUGHTER WAS VERY RUDE AND ANGRY, STATING THAT "PT HAS NOT HAD ANY FOOD SINCE THURSDAY", WHEN SHE CAME IN. HOWEVER, PT HAS RECEIVED MEALS PER DIET ORDER, WELL FOOD BROUGHT IN BY DAUGHTER YESTERDAY. PT CHOOSE NOT TO EAT ANY OF BREAKFAST THIS AM, AND REFUSED TO HAVE ANY CONTAINERS OPENED FOR HER TO TRY. INFORMED CRIMINAL INTELLIGENCE ANALYST OF DAUGHTERS COMPLAINTS AND BEHAVIOR. PER SPEECH EVAL REPORT YESTERDAY, PT WAS PLACED ON DIET PER MENTATION AND SWALLOWING ABILITY; SEE CHART. PT ADVOCATE UPDATED ON DAUGHTERS COMPLAINT.
[2020-12-21 13:29] LABS: Alanine Aminotransfer (ALT/SGP 21 U/L (12-78); Albumin, Blood 1.5 g/dL (3.4-5.0); Albumin/Globulin Ratio 0.4 (0.8-1.8); Alk Phos 80 U/L (50-136); Anion Gap 2 mmol/L (6-16); Aspartate Aminotrans (AST/SGOT 29 U/L (12-37); Bilirubin, Total 0.3 mg/dL (0.1-1.0); Blood Urea Nitrogen 10 mg/dL (8-24); Bun/Creatinine Ratio 19.6 (12.0-20.0); CO2, Blood 30 mmol/L (21-32); Calcium, Blood 7.7 mg/dL (8.5-10.1); Chloride, Blood 106 mmol/L (98-108); Creatinine, Blood 0.51 mg/dL (0.40-1.00); Globulin, Blood 3.5 g/dL (2.2-4.0); Glomerular Filtration Rate >60 (60-); Glucose, Blood 106 mg/dL (70-99); Sodium, Blood 138 mmol/L (136-145)
--- NOTE | 2020-12-21 15:04 | NUR ---
12/21/20- PER CHART REVIEW, DAUGHTER CALLED C/O THAT HER MOM IS NOT RECEIVING FOOD BUT PT HAS BEEN EATING AND DOES HAVE DIET ORDERS DUE TO MENTATION AND SWALLOWING ABILITY. PT ADVOCATE HAS BEEN NOTIFIED BY HOSPITAL STAFF. SPEECH HAS DONE A SWALLOW EVAL. -DORA
--- NOTE | 2020-12-21 18:21 | NUR ---
SHIFT SUMMARY PT WITH HX OF MS, BLADDER RETENSION, AND AMS R/T SEPSIS/UTI. PT AWAKE THIS AM AND MORE ORIENTED TODAY. SP ANASTACIO DONE THIS AM; DIET CHANGED TO REG. PT STILL NOT EATING MUCH. DAUGHTER BROUGHT IN FOOD SEVERAL TIMES TODAY AND PT ONLY ATE BITES OF IT WELL. PT NOT VOIDING FIRST PART OF SHIFT; ENCOURAGED TO DRINK MORE FLUIDS. BLADDER SCAN DONE MULTIPLE TIMES WITH VARIED AMOUNT OF URINE IN BLADDER SHOWING. PT ABLE TO VOID A COUPLE OF TIMES THIS AFTERNOON, AFTER INCREASING FLUID INTAKE. DR STEWART NOTIFIED OF BLADDER SCAN RESULTS. NEW ORDER RECEIVED TO PLACE HALE IF UNABLE TO VOID AND PT AGREEABLE. PT DOES NOT WANT A HALE CATH PLACED, THOUGH DAUGHTER WANTS ONE PLACED. DAUGHTER HERE THIS AFTERNOON FOR VISITING HRS. DAUGHTER CONSTANTLY CALLING STAFF TO FOR FREQUENT QUESTIONS. [facility] RN, TONIA, NOTIFIED TO TALK WITH DAUGHTER AND ANS FURTHER QUESTIONS. MULTIPLE BLADDER SCANS DONE, PER DAUGHTER REQUEST. PT RESTING QUIETLY, WATCHING TV AT THIS TIME. PT ABLE TO VOID ON HER OWN WHEN ABLE TO RELAX AND DAUGHTER OUT OF . PT DENIED FURTHER NEEDS. REQUESTED SCD'S TO BE PLACED. DECLINED LOVENOX. CALL LT IN REACH. ABLE TO MAKE NEEDS KNOWN.
[2020-12-21 21:36] LABS: Source, Urine Catheter
[2020-12-21 21:39] LABS: Appearance, Urine Clear (Clear); Bilirubin, Urine Neg (Neg); Blood, Urine 3+ (Neg); Color, Urine Yellow (P-Yellow); Glucose Qualitative, Urine Neg (Neg); Ketones, Urine Neg (Neg); Leukocyte Esterase, Urine 3+ (Neg); Nitrite, Urine Neg (Neg); Protein, Urine 2+ (Neg); Urobilinogen, Urine NORM (Normal)
[2020-12-21 21:48] LABS: Amorphous Light (0-Heavy); Bacteria Few /hpf; Red Blood Cells, Urine 0-2 /hpf (0-2); Squamous Epithelial Cells Rare /hpf (Few); White Blood Cells, Urine 50-100 /hpf (0-5)
[2020-12-22 05:53] LABS: Anion Gap 3 mmol/L (6-16); Blood Urea Nitrogen 9 mg/dL (8-24); Bun/Creatinine Ratio 17.3 (12.0-20.0); CO2, Blood 29 mmol/L (21-32); Calcium, Blood 7.7 mg/dL (8.5-10.1); Chloride, Blood 110 mmol/L (98-108); Creatinine, Blood 0.52 mg/dL (0.40-1.00); Glomerular Filtration Rate >60 (60-); Glucose, Blood 87 mg/dL (70-99); Potassium, Blood 3.6 mmol/L (3.5-5.5); Sodium, Blood 142 mmol/L (136-145)
--- NOTE | 2020-12-22 06:23 | NUR ---
PT IS ALERT, HAS MS WITH LIMITED MOVEMENT TO LEGS, HX OF RETENTION. HALE CATH PLACED THIS SHIFT, UA SENT. PT TO D/C HOME WITH HALE CATH. POWERGLIDE IN ALTON FLUSHES WELL BUT UNABLE TO DRAW LABS FROM IT THIS AM.
[2020-12-22] MEDS ORDERED: CEFD300 PO (13:15)
--- NOTE | 2020-12-22 14:50 | NUR ---
Discharge Summary A/Ox4, pleasant/cooperative. Up with 1p and gait belt, stand pivot. Patient discharging to home with HH. Reviewed discharge paperwork with daughter and patient at bedside, copy provided. Questions answered to their satisfaction. PG to ALTON removed. Last dose of IV abx given prior to discharge. This RN provided education to daughter on catheter management (empty, prevent dependent loop, clean tip with alcohol pad, monthly cath change, etc..); urinal sent home. Daughter verbalized understanding. Patient dressed in personal clothes x 1 assist. Discharging with martinez for retention. Meds faxed to [facility] d/t preferred pharmacy closed. Escorted by GASOLINE DRAGLINE OPERATOR via w/c.
--- NOTE | 2020-12-24 13:07 | NUR ---
ADMIT: 12/18/20 DISCHARGE: 12/22/20 DX: sepsis CC:cpeabody cpeabodyADMIT: 03/04/20 DISCHARGE: 03/07/20 DX: Pneumonia, UTI, MS, Weakness CC: Cpeabody CLOTILDE CALL: met with Parisa prior to discharge, call her caregiver Kate for clotilde RESIDENCE: Home CAREGIVER: Kate Restrepo, (caregiver), DX: HTN, GERD, Lung disease, see list DME: Wheelchair, power scooter. O2 nocturnal , ramp, needs new ramp see list CCM: No record?HOME HEALTH: [facility] home health for nurse, pt ot. s/w Summer 12/24/20 SUMMARY: Admit 12/18/ Discharged home with caregiver Kate, Home health order is being sent to [facility] today for nurse, pt ,0t. Caregiver chose [facility]. Discussed clotilde call on thursday or Thursday from [place]. no other care needs identified. Parisa was sent home with Amarjit chandra cp
== END 2020-12-22 14:45 | disposition home health service (06) | DRG 871 ==
LOC: ER 08:17 → MEDS 10:07
PROVIDERS: Emergency Medicine; Internal Medicine; ADMIT Internal Medicine
DX: A41.52 Sepsis due to Pseudomonas (principal); J96.91 Respiratory failure, unspecified with hypoxia; N39.0 Urinary tract infection, site not specified; G82.20 Paraplegia, unspecified; N13.30 Unspecified hydronephrosis; G93.40 Encephalopathy, unspecified; G35 Multiple sclerosis; K21.9 Gastro-esophageal reflux disease without esophagitis; G47.33 Obstructive sleep apnea (adult) (pediatric); E78.5 Hyperlipidemia, unspecified; E87.6 Hypokalemia; M19.90 Unspecified osteoarthritis, unspecified site; N31.9 Neuromuscular dysfunction of bladder, unspecified; R33.9 Retention of urine, unspecified; I95.9 Hypotension, unspecified; T36.8X5A Adverse effect of other systemic antibiotics, initial encounter; Z66 Do not resuscitate; M21.611 Bunion of right foot; I10 Essential (primary) hypertension; F32.9 Major depressive disorder, single episode, unspecified; Z99.81 Dependence on supplemental oxygen; Z79.1 Long term (current) use of non-steroidal anti-inflammatories (NSAID)
CPT/HCPCS: 36415; 51701; 51702; 71045; 76770; 80048; 80053; 81001; 82565; 83605; 83735; 85025; 87040; 87077; 87086; 87186; 92526; 92610; 93005; 93010; 93971; 94760; 96365; 97110; 97162; 99285-25; A9270; C1751; J0696; J0713; J1650; J2405; J3370; J7030; J7040; J7042; J7050; P9612

== ENCOUNTER → 2021-01-10 | Outpatient (CLI) | payer OTHER ==
[~2021-01-10] MED LIST changes: +MIRALAX17 GM PO; +MUPIROCIN22 G2 TOP; +NYAMYC15 G1 TOP
== END | disposition home or self-care (01) ==
LOC: LAB SHORT 11:00
DX: N39.0 Urinary tract infection, site not specified (principal)
CPT/HCPCS: 87077; 87086; 87186

== ENCOUNTER → 2021-02-12 | Outpatient (CLI) | payer OTHER | END | disposition home or self-care (01) | LOC: LAB SHORT 17:38 → LAB 17:38 | DX: N39.0 Urinary tract infection, site not specified (principal) | CPT/HCPCS: 87086 ==

== ENCOUNTER → 2021-06-21 | Outpatient (CLI) | payer OTHER | END | disposition home or self-care (01) | LOC: LAB SHORT 17:40 | DX: L89.92 Pressure ulcer of unspecified site, stage 2 (principal) | CPT/HCPCS: 87070; 87075; 87076; 87185; 87205 ==

== ENCOUNTER 2021-07-08 03:05 | Day surgery (SDC) | payer OTHER | END 2021-07-08 22:53 | disposition home or self-care (01) | LOC: WOUND 03:05 | DX: L89.154 Pressure ulcer of sacral region, stage 4 (principal); F17.200 Nicotine dependence, unspecified, uncomplicated | CPT/HCPCS: A9270; G0463 ==

== ENCOUNTER → 2021-07-23 | Outpatient (CLI) | payer OTHER ==
[2021-07-23 17:14] LABS: Source, Urine Catheter
[2021-07-23 17:57] LABS: Appearance, Urine Hazy (Clear); Bilirubin, Urine Neg (Neg); Blood, Urine 5+ (Neg); Color, Urine Yellow (P-Yellow); Glucose Qualitative, Urine Neg (Neg); Ketones, Urine Neg (Neg); Leukocyte Esterase, Urine 2+ (Neg); Nitrite, Urine Neg (Neg); Protein, Urine 2+ (Neg); Urobilinogen, Urine 2+ (Normal)
[2021-07-23 18:28] LABS: Bacteria Mod /hpf; Squamous Epithelial Cells Mod /hpf (Few)
== END | disposition home or self-care (01) ==
LOC: LAB SHORT 17:12
PROVIDERS: Urology
DX: N20.0 Calculus of kidney (principal); N31.9 Neuromuscular dysfunction of bladder, unspecified; R33.9 Retention of urine, unspecified; Z87.440 Personal history of urinary (tract) infections
CPT/HCPCS: 81001

== ENCOUNTER 2021-08-09 04:35 | Day surgery (SDC) | payer OTHER | END 2021-08-09 23:16 | disposition home or self-care (01) | LOC: WOUND 04:35 | PROC: 0JB70ZZ Excision of Back Subcutaneous Tissue and Fascia, Open Approach (ICD-10-PCS; principal; 2021-08-09) | DX: L89.154 Pressure ulcer of sacral region, stage 4 (principal); L89.891 Pressure ulcer of other site, stage 1; L89.892 Pressure ulcer of other site, stage 2; G35 Multiple sclerosis; Z99.3 Dependence on wheelchair | CPT/HCPCS: A9270 ==

== ENCOUNTER 2021-08-26 14:12 | Inpatient (IN) | payer OTHER ==
[~2021-08-26] VITALS: Ht 160 cm; Wt 57.9 kg
[2021-08-26] MEDS ORDERED: GABAPENTIN600 MG PO ×2 (14:24)
[2021-08-26] MEDS ORDERED: DULO60 PO (14:24)
[2021-08-26] MEDS ORDERED: OMEP20ER PO ×2 (14:24)
[2021-08-26] MEDS ORDERED: OXYB5 PO ×2 (14:25)
[2021-08-26] MEDS ORDERED: FURO40 PO ×2 (14:25)
[2021-08-26] MEDS ORDERED: BUPROPION XL150 M1 PO ×2 (14:25)
[2021-08-26] MEDS ORDERED: MIDO5 PO ×2 (14:25)
[2021-08-26] MEDS ORDERED: MELO7.5 PO ×2 (14:26)
[2021-08-26] MEDS ORDERED: POTA10T PO ×2 (14:26)
[2021-08-26 15:19] LABS: Alanine Aminotransfer (ALT/SGP 14 U/L (12-78); Albumin, Blood 1.9 g/dL (3.4-5.0); Albumin/Globulin Ratio 0.4 (0.8-1.8); Alk Phos 143 U/L (50-136); Anion Gap 7 mmol/L (6-16); Aspartate Aminotrans (AST/SGOT 45 U/L (12-37); Bilirubin, Total 1.3 mg/dL (0.1-1.0); Blood Urea Nitrogen 18 mg/dL (8-24); Bun/Creatinine Ratio 33.3 (12.0-20.0); CO2, Blood 40 mmol/L (21-32); Chloride, Blood 83 mmol/L (98-108); Creatinine, Blood 0.54 mg/dL (0.40-1.00); Glomerular Filtration Rate >60 (60-); Glucose, Blood 97 mg/dL (70-99); Potassium, Blood 4.2 mmol/L (3.5-5.5); Sodium, Blood 130 mmol/L (136-145); Total Protein, Blood 6.9 g/dL (6.4-8.2)
[2021-08-26 16:09] LABS: BASOPHILS ABSOLUTE AUTO 0.07 K/mm3 (0.00-0.23); BASOPHILS PERCENT AUTO 0 % (0-2); EOSINOPHILS ABSOLUTE AUTO 0.08 K/mm3 (0.00-0.68); EOSINOPHILS PERCENT AUTO 0 % (0-6); Hemoglobin 15.2 g/dL (11.5-16.0); IMMATURE GRAN ABSOLUTE AUTO 0.14 K/mm3 (0.00-0.10); IMMATURE GRAN PERCENT AUTO 1 % (0-1); LYMPHOCYTES PERCENT AUTO 18 % (21-46); MONOCYTES ABSOLUTE AUTO 1.59 K/mm3 (0.16-1.47); MONOCYTES PERCENT AUTO 8 % (4-13); Mean Corpuscular HGB 28.8 pg (26.0-34.0); Mean Corpuscular HGB Conc 32.3 g/dL (31.5-36.5); Mean Corpuscular Volume 89 fL (80-100); Mean Platelet Volume 9.7 fL (9.1-12.4); NEUTROPHILS ABSOLUTE AUTO 15.53 K/mm3 (1.96-9.15); NEUTROPHILS PERCENT AUTO 73 % (41-73); Platelet Count 391 K/mm3 (150-400); RDW Coefficient Variation 13.8 % (11.7-14.2); RDW Standard Deviation 44.9 fL (35.1-46.3); Red Blood Cell Count 5.28 M/mm3 (3.80-5.20); White Blood Cell Count 21.21 K/mm3 (4.00-11.30)
[2021-08-26 17:11] LABS: Source, Urine Catheter
[2021-08-26 17:13] LABS: Appearance, Urine Turbid (Clear); Bilirubin, Urine Neg (Neg); Blood, Urine 4+ (Neg); Color, Urine Red (P-Yellow); Glucose Qualitative, Urine Neg (Neg); Ketones, Urine 1+ (Neg); Leukocyte Esterase, Urine 3+ (Neg); Nitrite, Urine Pos (Neg); Protein, Urine 3+ (Neg); Specific Gravity, Urine 1.015 (1.003-1.022); Urobilinogen, Urine 1+ (Normal)
[2021-08-26 17:23] LABS: Triple Phosphate Crystals Mod /hpf
[2021-08-26 17:25] LABS: Bacteria Many /hpf; Red Blood Cells, Urine TNTC /hpf (0-2); Squamous Epithelial Cells Rare /hpf (Few); White Blood Cells, Urine 50-100 /hpf (0-5)
[2021-08-26 17:26] LABS: Amorphous Light (0-Heavy)
[2021-08-26 20:13] LABS: Influenza A, PCR NEGATIVE (NEGATIVE); Influenza B, PCR NEGATIVE (NEGATIVE); Resp Syncytial Virus, PCR NEGATIVE (NEGATIVE); SARS-Cov-2 (COVID-19) PCR, MMC NEGATIVE (NEGATIVE)
[2021-08-26 22:35] LABS: Albumin, Blood 1.6 g/dL (3.4-5.0); Anion Gap 10 mmol/L (6-16); Blood Urea Nitrogen 14 mg/dL (8-24); CO2, Blood 34 mmol/L (21-32); Calcium, Blood 7.5 mg/dL (8.5-10.1); Chloride, Blood 92 mmol/L (98-108); Creatinine, Blood 0.48 mg/dL (0.40-1.00); Glomerular Filtration Rate >60 (60-); Glucose, Blood 72 mg/dL (70-99); Phosphorus, Blood 2.5 mg/dL (2.5-4.9); Potassium, Blood 3.2 mmol/L (3.5-5.5); Sodium, Blood 136 mmol/L (136-145)
--- NOTE | 2021-08-26 23:50 | NUR ---
ADMISSION NOTE PT TO 326 FROM ER AT 2124. PT ADMITTED FOR UTI/SEPSIS. COVID NEGATIVE. PT AND DAUGHTER WOULD LIKE PT TO HAVE FLU SHOT WHEN SHE IS FEELING BETTER. PT BP HAS BEEN 80'S OVER 50'S. LAST BP WAS 104/76. ON TELE, HR SINUS AT 95. PT HAS SUPRAPUBIC CATH THAT WAS PLACED ABOUT 2 WEEKS AGO. PTS DAUGHTER STS THAT PT HAS LOST SIGNIFICANT AMOUNT OF WEIGHT IN THE LAST YEAR WITHOUT TRYING. FOOD DOES NOT TASTE GOOD TO HER. PT ON 4 L OF O2, USUALLY ONLY USES IT AT NIGHT AT HOME. PT HAS WOUND TO BUTTOCKS THAT IS COVERED WITH A MEPILEX DRESSING. PT GOES TO THE WOUND CLINIC FOR THIS WOUND. PT ALSO HAS BILATERAL FOOT WOUNDS 20G IV TO R FOREARM. FLUIDS RUNNING AT 125 HR.
--- NOTE | 2021-08-27 01:07 | NUR ---
PT PUT ON CONTINUOUS PULSE OX. 100% ON 4L. TURNED PT DOWN TO 2L PER RT.
--- NOTE | 2021-08-27 04:46 | NUR ---
SHIFT SUMMARY PT PUT ON CONTINUOUS PULSE OX AND MOVED FROM 4 L TO 2L OXYGEN VIA NC. SATS ARE 99-100. HEART RATE IN THE 90'S. PT HAS BEEN RESTING QUIETLY SINCE COMING FROM THE ER LAST NIGHT. CALL LIGHT WITHIN REACH AND WILL CONTINUE TO MONITOR.
[2021-08-27 06:15] LABS: Hematocrit 39.1 % (33.0-51.0); Mean Corpuscular HGB 29.3 pg (26.0-34.0); Mean Corpuscular HGB Conc 33.2 g/dL (31.5-36.5); Mean Corpuscular Volume 88 fL (80-100); RDW Coefficient Variation 13.9 % (11.7-14.2); RDW Standard Deviation 44.5 fL (35.1-46.3); Red Blood Cell Count 4.44 M/mm3 (3.80-5.20); White Blood Cell Count 14.05 K/mm3 (4.00-11.30)
[2021-08-27 07:04] LABS: Alanine Aminotransfer (ALT/SGP 8 U/L (12-78); Albumin, Blood 1.4 g/dL (3.4-5.0); Albumin/Globulin Ratio 0.4 (0.8-1.8); Alk Phos 103 U/L (50-136); Anion Gap 12 mmol/L (6-16); Aspartate Aminotrans (AST/SGOT 27 U/L (12-37); Bilirubin, Total 0.8 mg/dL (0.1-1.0); Blood Urea Nitrogen 13 mg/dL (8-24); CO2, Blood 30 mmol/L (21-32); Calcium, Blood 7.6 mg/dL (8.5-10.1); Chloride, Blood 92 mmol/L (98-108); Creatinine, Blood 0.45 mg/dL (0.40-1.00); Globulin, Blood 3.3 g/dL (2.2-4.0); Glomerular Filtration Rate >60 (60-); Glucose, Blood 60 mg/dL (70-99); Potassium, Blood 3.1 mmol/L (3.5-5.5); Sodium, Blood 134 mmol/L (136-145)
[2021-08-27 07:05] LABS: Total Protein, Blood 4.7 g/dL (6.4-8.2)
[2021-08-27 07:08] LABS: Platelet Count 215 K/mm3 (150-400)
[2021-08-27 08:02] LABS: BAND PERCENT MAN 1 % (0-8); BASOPHILS PERCENT MAN 0 % (0-2); EOSINOPHILS ABSOLUTE MAN 0.42 K/mm3 (0.00-0.68); EOSINOPHILS PERCENT MAN 3 % (0-6); LYMPHOCYTES ABSOLUTE MAN 3.65 K/mm3 (0.84-5.20); LYMPHOCYTES PERCENT MAN 26 % (21-46); MONOCYTES ABSOLUTE MAN 0.98 K/mm3 (0.16-1.47); MONOCYTES PERCENT MAN 7 % (4-13); NEUTROPHILS ABSOLUTE MAN 8.99 K/mm3 (1.96-9.15); SEG NEUTROPHILS PERCENT MAN 63 % (41-73); TOTAL CELLS COUNTED 100
--- NOTE | 2021-08-27 18:08 | NUR ---
DAY SHIFT SUMMARY PT PLEASANT, DAUGHTER CAME TO VISIT AND BROUGHT DINNER. PT ABLE TO EAT WHAT DAUGHTER BROUGHT. WOUND TO SACRUM WITH TUNNELLING, RT FOOT ON HEAL AND BUNION AREA, LT FOOT GREAT TOE. WOUND CARE PROVIDED WITH DRESSING CHANGES TO RT FOOT AND SACRUM, AND LT GREAT TOE LEFT OPEN TO AIR. PT COOPERATIVE WITH CARE. CALL LIGHT WITHIN REACH.
--- NOTE | 2021-08-28 04:26 | NUR ---
PT RESTING THROUGHOUT SHIFT. CATHETER CONTINUES TO DRAIN. DECREASED URINE OUTPUT AND BLADDER SCAN SHOWED 0. FLUIDS ORDERED 150/HR. PT HAD NON-FORMED BOWEL MOVEMENT EARLY IN SHIFT. SHE HAS BEEN SATTING 97-100 ON 1 L O2 FOR HER SLEEP APNEA. CALL LIGHT WITHIN REACH AND WILL CONTINUE TO MONITOR.
[2021-08-28 06:14] LABS: Albumin, Blood 1.5 g/dL (3.4-5.0); Anion Gap 13 mmol/L (6-16); Blood Urea Nitrogen 11 mg/dL (8-24); Bun/Creatinine Ratio 26.4 (12.0-20.0); CO2, Blood 29 mmol/L (21-32); Calcium, Blood 7.7 mg/dL (8.5-10.1); Chloride, Blood 95 mmol/L (98-108); Creatinine, Blood 0.42 mg/dL (0.40-1.00); Glomerular Filtration Rate >60 (60-); Glucose, Blood 76 mg/dL (70-99); Phosphorus, Blood 2.5 mg/dL (2.5-4.9); Potassium, Blood 3.8 mmol/L (3.5-5.5); Sodium, Blood 137 mmol/L (136-145); Vancomycin, Trough 17.3 ug/mL (5.0-10.0)
[2021-08-28 07:55] LABS: BASOPHILS ABSOLUTE AUTO 0.04 K/mm3 (0.00-0.23); BASOPHILS PERCENT AUTO 0 % (0-2); EOSINOPHILS ABSOLUTE AUTO 0.15 K/mm3 (0.00-0.68); EOSINOPHILS PERCENT AUTO 1 % (0-6); Hematocrit 38.4 % (33.0-51.0); Hemoglobin 12.6 g/dL (11.5-16.0); IMMATURE GRAN ABSOLUTE AUTO 0.07 K/mm3 (0.00-0.10); IMMATURE GRAN PERCENT AUTO 1 % (0-1); LYMPHOCYTES ABSOLUTE AUTO 3.06 K/mm3 (0.84-5.20); LYMPHOCYTES PERCENT AUTO 23 % (21-46); MONOCYTES ABSOLUTE AUTO 0.78 K/mm3 (0.16-1.47); MONOCYTES PERCENT AUTO 6 % (4-13); Mean Corpuscular HGB 29.2 pg (26.0-34.0); Mean Corpuscular HGB Conc 32.8 g/dL (31.5-36.5); Mean Corpuscular Volume 89 fL (80-100); Mean Platelet Volume 9.4 fL (9.1-12.4); NEUTROPHILS ABSOLUTE AUTO 9.03 K/mm3 (1.96-9.15); NEUTROPHILS PERCENT AUTO 69 % (41-73); Platelet Count 267 K/mm3 (150-400); RDW Coefficient Variation 13.8 % (11.7-14.2); RDW Standard Deviation 44.9 fL (35.1-46.3); Red Blood Cell Count 4.32 M/mm3 (3.80-5.20); White Blood Cell Count 13.13 K/mm3 (4.00-11.30)
--- NOTE | 2021-08-28 14:40 | NUR ---
I went and spoke with the patient this morning. She states she lives with her spouse who will help transport today. I called and he confirmed he will pick her up this afternoon. Pt states she has an electric scooter and wheelchair that shes uses daily along with Oxygen at night. Pt states she has a caregiver through the state named Norah that helps with ADLs. Pt's daughter Scarlet also helps with care, I called her as well to let her know pt is discharging today. Hospital follow up is scheduled with Dr. Diogenes Toribio Monday, August 30, 2021 11:00 AM
[2021-08-28] MEDS ORDERED: CIPR250 PO ×2 (15:51)
--- NOTE | 2021-08-28 16:17 | NUR ---
DISCHARGE DISCHARGE MEDICATIONS AND INSTRUCTIONS EXPLAINED TO PATIENT. PATIENT STATED UNDERSTANDING. PCP AND UROLOGY FOLLOW UP SCHEDULED. BELONGINGS WITH PATIENT IV REMOVED WITHOUT ISSUE. TRANSFERED TO PRIVATE VEHICLE VIA WHEELCHAIR.
== END 2021-08-28 16:01 | disposition home health service (06) | DRG 698 ==
LOC: ER 14:12 → ERHOLD 14:13 → MEDS 21:32
PROVIDERS: Emergency Medicine; ADMIT Family Medicine
DX: T83.510A Infection and inflammatory reaction due to cystostomy catheter, initial encounter (principal); A41.81 Sepsis due to Enterococcus; A41.59 Other Gram-negative sepsis; N39.0 Urinary tract infection, site not specified; E87.1 Hypo-osmolality and hyponatremia; E87.3 Alkalosis; G35 Multiple sclerosis; I10 Essential (primary) hypertension; Z66 Do not resuscitate; G47.33 Obstructive sleep apnea (adult) (pediatric); G62.9 Polyneuropathy, unspecified; F17.210 Nicotine dependence, cigarettes, uncomplicated; M19.90 Unspecified osteoarthritis, unspecified site; E87.8 Other disorders of electrolyte and fluid balance, not elsewhere classified; Z20.822 Contact with and (suspected) exposure to COVID-19; R13.10 Dysphagia, unspecified; T83.090A Other mechanical complication of cystostomy catheter, initial encounter; J43.1 Panlobular emphysema; F32.A Depression, unspecified; E87.6 Hypokalemia; K21.9 Gastro-esophageal reflux disease without esophagitis; Z88.8 Allergy status to other drugs, medicaments and biological substances; Z98.890 Other specified postprocedural states; Z87.442 Personal history of urinary calculi; Z74.01 Bed confinement status; Z79.899 Other long term (current) drug therapy; Z79.1 Long term (current) use of non-steroidal anti-inflammatories (NSAID); Y84.6 Urinary catheterization as the cause of abnormal reaction of the patient, or of later complication, without mention of misadventure at the time of the procedure; Z28.21 Immunization not carried out because of patient refusal
CPT/HCPCS: 0241U; 36415; 71045; 80053; 80069; 80202; 81001; 83605; 85025; 87040; 87077; 87086; 87186; 92610; 94762; 96374; 96375; 97110; 97162; 97166; 97530; 99285-25; A9270; J0696; J1644; J3370; J7030; J7120

== ENCOUNTER 2021-08-30 01:36 | Day surgery (SDC) | payer OTHER ==
[~2021-08-30 01:36] MED LIST changes: +BUPROPION XL150 M1 PO; +CIPR250 PO; +GABAPENTIN600 MG PO; +OMEP20ER PO
== END 2021-08-30 23:18 | disposition home or self-care (01) ==
LOC: WOUND 01:36
DX: L89.154 Pressure ulcer of sacral region, stage 4 (principal); L89.892 Pressure ulcer of other site, stage 2; L89.611 Pressure ulcer of right heel, stage 1; L89.619 Pressure ulcer of right heel, unspecified stage; S80.11XA Contusion of right lower leg, initial encounter; X58.XXXA Exposure to other specified factors, initial encounter
CPT/HCPCS: A9270; G0463

== ENCOUNTER 2021-09-13 05:08 | Day surgery (SDC) | payer OTHER | END 2021-09-13 23:14 | disposition home or self-care (01) | LOC: WOUND 05:08 | DX: L89.154 Pressure ulcer of sacral region, stage 4 (principal); L89.892 Pressure ulcer of other site, stage 2; L89.619 Pressure ulcer of right heel, unspecified stage; S80.11XA Contusion of right lower leg, initial encounter; X58.XXXA Exposure to other specified factors, initial encounter | CPT/HCPCS: A9270; G0463 ==

== ENCOUNTER → 2021-09-20 | Outpatient (CLI) | payer OTHER ==
[~2021-09-20] MED LIST changes: +METHENAMINE HIPPURAT PO
[2021-09-20 15:30] LABS: Source, Urine Catheter
[2021-09-20 15:43] LABS: BASOPHILS ABSOLUTE AUTO 0.06 K/mm3 (0.00-0.23); BASOPHILS PERCENT AUTO 0 % (0-2); EOSINOPHILS ABSOLUTE AUTO 0.03 K/mm3 (0.00-0.68); EOSINOPHILS PERCENT AUTO 0 % (0-6); Hematocrit 40.7 % (33.0-51.0); Hemoglobin 13.1 g/dL (11.5-16.0); IMMATURE GRAN ABSOLUTE AUTO 0.13 K/mm3 (0.00-0.10); IMMATURE GRAN PERCENT AUTO 1 % (0-1); LYMPHOCYTES ABSOLUTE AUTO 2.78 K/mm3 (0.84-5.20); LYMPHOCYTES PERCENT AUTO 15 % (21-46); MONOCYTES ABSOLUTE AUTO 1.11 K/mm3 (0.16-1.47); MONOCYTES PERCENT AUTO 6 % (4-13); Mean Corpuscular HGB 28.9 pg (26.0-34.0); Mean Corpuscular HGB Conc 32.2 g/dL (31.5-36.5); Mean Corpuscular Volume 90 fL (80-100); Mean Platelet Volume 10.1 fL (9.1-12.4); NEUTROPHILS ABSOLUTE AUTO 14.01 K/mm3 (1.96-9.15); NEUTROPHILS PERCENT AUTO 77 % (41-73); Platelet Count 328 K/mm3 (150-400); RDW Coefficient Variation 14.6 % (11.7-14.2); RDW Standard Deviation 48.2 fL (35.1-46.3); Red Blood Cell Count 4.53 M/mm3 (3.80-5.20); White Blood Cell Count 18.12 K/mm3 (4.00-11.30)
[2021-09-20 15:46] LABS: Appearance, Urine Cloudy (Clear); Bilirubin, Urine Neg (Neg); Blood, Urine 2+ (Neg); Color, Urine Yellow (P-Yellow); Glucose Qualitative, Urine Neg (Neg); Ketones, Urine Neg (Neg); Leukocyte Esterase, Urine 3+ (Neg); Nitrite, Urine Neg (Neg); Protein, Urine 2+ (Neg); Specific Gravity, Urine 1.015 (1.003-1.022); Urobilinogen, Urine NORM (Normal)
[2021-09-20 15:57] LABS: Bacteria Many /hpf; Squamous Epithelial Cells Mod /hpf (Few); Yeast/Fungi Urine Many /hpf
[2021-09-20 15:59] LABS: Calcium Oxalate Crystals Rare /hpf; Transitional Epithelial Cells Rare /hpf (0-Rare)
[2021-09-20 16:01] LABS: Alanine Aminotransfer (ALT/SGP 14 U/L (12-78); Albumin, Blood 1.5 g/dL (3.4-5.0); Albumin/Globulin Ratio 0.3 (0.8-1.8); Alk Phos 153 U/L (50-136); Anion Gap 9 mmol/L (6-16); Aspartate Aminotrans (AST/SGOT 18 U/L (12-37); Bilirubin, Total 0.7 mg/dL (0.1-1.0); Blood Urea Nitrogen 15 mg/dL (8-24); Bun/Creatinine Ratio 31.8 (12.0-20.0); CHOL/HDL RATIO 3.1; CO2, Blood 41 mmol/L (21-32); Chloride, Blood 78 mmol/L (98-108); Cholesterol 94 mg/dL (50-200); Creatinine, Blood 0.47 mg/dL (0.40-1.00); Globulin, Blood 4.6 g/dL (2.2-4.0); Glomerular Filtration Rate >60 (60-); Glucose, Blood 109 mg/dL (70-99); HDL Cholesterol 30 mg/dL (>39); LDL/HDL RATIO 1.5; Low Density Lipoprotein Chol 44 mg/dL (0-110); Sodium, Blood 128 mmol/L (136-145); Total Protein, Blood 6.1 g/dL (6.4-8.2); Triglycerides 102 mg/dL (30-160); Very Low Density Lipoprot Chol 20 mg/dL (6-32)
[2021-09-20 16:04] LABS: Thyroid Stimulating Hormone 0.874 uIU/mL (0.360-4.800)
== END | disposition home or self-care (01) ==
LOC: LAB SHORT 14:10
PROVIDERS: Family Medicine
DX: N39.0 Urinary tract infection, site not specified (principal); L89.92 Pressure ulcer of unspecified site, stage 2; J43.1 Panlobular emphysema; N20.0 Calculus of kidney; E87.1 Hypo-osmolality and hyponatremia; Z46.6 Encounter for fitting and adjustment of urinary device
CPT/HCPCS: 80053; 80061; 81001; 84443; 85025; 87086

== ENCOUNTER 2021-09-22 11:35 | Inpatient (IN) | payer OTHER ==
[~2021-09-22] VITALS: Ht 160 cm; Wt 56.7 kg
[~2021-09-22 11:35] MED LIST changes: -METHENAMINE HIPPURAT PO
[2021-09-22] MEDS ORDERED: DULO60 PO (12:03)
[2021-09-22] MEDS ORDERED: METHENAMINE HIPPURAT PO (12:04)
[2021-09-22 12:19] LABS: BASOPHILS ABSOLUTE AUTO 0.07 K/mm3 (0.00-0.23); BASOPHILS PERCENT AUTO 0 % (0-2); EOSINOPHILS ABSOLUTE AUTO 0.05 K/mm3 (0.00-0.68); EOSINOPHILS PERCENT AUTO 0 % (0-6); Hematocrit 44.3 % (33.0-51.0); Hemoglobin 14.6 g/dL (11.5-16.0); IMMATURE GRAN ABSOLUTE AUTO 0.11 K/mm3 (0.00-0.10); IMMATURE GRAN PERCENT AUTO 1 % (0-1); LYMPHOCYTES ABSOLUTE AUTO 2.83 K/mm3 (0.84-5.20); LYMPHOCYTES PERCENT AUTO 15 % (21-46); MONOCYTES ABSOLUTE AUTO 1.37 K/mm3 (0.16-1.47); MONOCYTES PERCENT AUTO 7 % (4-13); Mean Corpuscular HGB 29.2 pg (26.0-34.0); Mean Corpuscular Volume 89 fL (80-100); Mean Platelet Volume 9.2 fL (9.1-12.4); NEUTROPHILS ABSOLUTE AUTO 14.62 K/mm3 (1.96-9.15); NEUTROPHILS PERCENT AUTO 77 % (41-73); Platelet Count 292 K/mm3 (150-400); RDW Coefficient Variation 14.6 % (11.7-14.2); RDW Standard Deviation 47.2 fL (35.1-46.3); White Blood Cell Count 19.05 K/mm3 (4.00-11.30)
[2021-09-22 12:45] LABS: Alanine Aminotransfer (ALT/SGP 20 U/L (12-78); Albumin, Blood 1.8 g/dL (3.4-5.0); Albumin/Globulin Ratio 0.4 (0.8-1.8); Alk Phos 151 U/L (50-136); Anion Gap 9 mmol/L (6-16); Aspartate Aminotrans (AST/SGOT 30 U/L (12-37); Bilirubin, Total 0.8 mg/dL (0.1-1.0); Blood Urea Nitrogen 12 mg/dL (8-24); Bun/Creatinine Ratio 29.6 (12.0-20.0); CO2, Blood 43 mmol/L (21-32); Calcium, Blood 8.6 mg/dL (8.5-10.1); Chloride, Blood 77 mmol/L (98-108); Creatinine, Blood 0.41 mg/dL (0.40-1.00); Globulin, Blood 4.4 g/dL (2.2-4.0); Glomerular Filtration Rate >60 (60-); Glucose, Blood 95 mg/dL (70-99); Potassium, Blood 3.1 mmol/L (3.5-5.5); Sodium, Blood 129 mmol/L (136-145); Total Protein, Blood 6.2 g/dL (6.4-8.2); Troponin I <0.015 ng/mL (0.000-0.040)
[2021-09-22 13:38] LABS: Influenza A, PCR NEGATIVE (NEGATIVE); Influenza B, PCR NEGATIVE (NEGATIVE); Resp Syncytial Virus, PCR NEGATIVE (NEGATIVE); SARS-Cov-2 (COVID-19) PCR, MMC NEGATIVE (NEGATIVE)
--- NOTE | 2021-09-22 19:14 | NUR ---
Received pt from ER on strecther with daughter at pt's side. Pt AAOX3, ABLE TO MAKE NEEDS KNOWN. SUPRAPUBIC CATHETER IN PLACE TO MID LOWER ABDOMINAL AREA, DRAINING PROPERLY. PT ADMITTED FOR S/S OF SOB WITH DX OF PNUEMONIA. WEAKNESS NOTED PT WAS ABLE TO ANSWER QUESTION. PT STATED THAT PT WANTS T HAVE DNR IN PLACE. PT'S DAUGHTER INSISTED THAT THE PT CHANGED HER DCISION. PT CLAERLY STATED THAT IS WHAT PT WANTS. PT HAS A REGULAR DIET POOR APPETITE NOTED AT DINNER TIME. MUPTIPLE WOUND NOTED, DOCMENT AND GRAPHICS PLACED IN PT'S CHART. PT IS ON O2 AT 3 L VIA N/C NO DISTRESS NOTED AT THIS TIME. NO COMPLAINTS VOICED, PT STATED PT IS COMFORTABLE. BED IN LOWEST POSITION CALL LIGHT IN REACH. PT EDUCATED ON USE OF NURSE TO CALL FOR ASSISTANCE, ABLE TO VERBALIZE UNDERSTANDING.
--- NOTE | 2021-09-23 00:01 | NUR ---
PHONE CALL TO FAMILY LATE ENTRY 2129: SPOKE TO PT'S DAUGHTER, GAVE STATUS UPDATE.
--- NOTE | 2021-09-23 04:12 | NUR ---
SHIFT SUMMARY PT ADMITTED WITH DX OF LEFT LOWER LOBE PNA. PMH: COPD, DEPRESSOPN, GERD, MS. MILD CONFUSION, FLAT AFFECT, SLOW TO VERBALLY RESPOND. SUPRAPUBIC CATHETER DRAINING DARK YELLOW URINE WITH SOME SEDIMENT. HYPOTENSIVE, RECEIVING MIDODRINE THREE TIMES A DAY, HOME MED. IV IN LEFT HAND. FAMILY REPORTS DECREASED PO INTAKE. RN TO RECOMMEND SPEECH THERAPY EVAL, PT HAS DIFFICULTY DRINKING FROM A STRAW, REQUIRES CUEING TO SWALLOW HER PILLS AND NOT HOLD THEM IN HER MOUTH, COUGHING NOTED WHEN DRINKING THIN LIQUIDS FROM A STRAW. LUNG SOUNDS WITH RHONCHI, WEARING O2 3LPM VIA NC. OCC PROD COUGH. MULTIPLE WOUNDS TO BLE, NECROTIC BLACK TISSUE TO BILAT FEET. PT CURRENTLY BEING SEEN WEEKLY AT THE WOUND CLINIC. PT REPORTS THAT HOME HEALTH DRESSES HER WOUNDS ON THE DAYS SHE ISN'T SEEN IN WOUND CLINIC (?). DAUGHTER SPOKE TO NURSE THIS EVENING VIA TELEPHONE AND IS REQUESTING A PHONE CALL FROM [facility] PHYSIC[facility] IN THE AM.
--- NOTE | 2021-09-23 05:37 | NUR ---
PT REFUSED TO SWALLOW HER AM MEDICATION, STATING "I DON'T WANT ANYMORE MEDICINE." PT WAS CONFUSED, KEPT ASKING. "WHERE IS REG?" REG IS HER EX- WHOM SHE LIVES WITH. PT REQUIRED FREQUENT REORIENTATION TO BEING AT THE HOSPITAL, SHE CONTINUED ASKING "IS REG HERE?". REFUSED SIPS OF WATER, AND ALL AM MEDICATION. STATED SHE WANTED TO REST.
[2021-09-23 11:14] LABS: BASOPHILS ABSOLUTE AUTO 0.07 K/mm3 (0.00-0.23); BASOPHILS PERCENT AUTO 0 % (0-2); EOSINOPHILS PERCENT AUTO 0 % (0-6); Hematocrit 45.1 % (33.0-51.0); Hemoglobin 14.6 g/dL (11.5-16.0); IMMATURE GRAN ABSOLUTE AUTO 0.18 K/mm3 (0.00-0.10); IMMATURE GRAN PERCENT AUTO 1 % (0-1); LYMPHOCYTES PERCENT AUTO 8 % (21-46); MONOCYTES ABSOLUTE AUTO 1.28 K/mm3 (0.16-1.47); MONOCYTES PERCENT AUTO 5 % (4-13); Mean Corpuscular HGB Conc 32.4 g/dL (31.5-36.5); Mean Corpuscular Volume 90 fL (80-100); Mean Platelet Volume 9.5 fL (9.1-12.4); NEUTROPHILS ABSOLUTE AUTO 22.13 K/mm3 (1.96-9.15); NEUTROPHILS PERCENT AUTO 86 % (41-73); Platelet Count 354 K/mm3 (150-400); RDW Coefficient Variation 15.1 % (11.7-14.2); RDW Standard Deviation 48.9 fL (35.1-46.3); Red Blood Cell Count 5.04 M/mm3 (3.80-5.20); White Blood Cell Count 25.66 K/mm3 (4.00-11.30)
[2021-09-23 11:38] LABS: Albumin, Blood 1.8 g/dL (3.4-5.0); Blood Urea Nitrogen 15 mg/dL (8-24); Bun/Creatinine Ratio 31.4 (12.0-20.0); Chloride, Blood 80 mmol/L (98-108); Creatinine, Blood 0.48 mg/dL (0.40-1.00); Glomerular Filtration Rate >60 (60-); Glucose, Blood 134 mg/dL (70-99); Magnesium, Blood 1.9 mg/dL (1.6-2.4); Potassium, Blood 2.8 mmol/L (3.5-5.5); Sodium, Blood 134 mmol/L (136-145)
[2021-09-23 11:48] LABS: Anion Gap Unable to Calculate mmol/L (6-16)
[2021-09-23 11:50] LABS: CO2, Blood >45 mmol/L (21-32)
--- NOTE | 2021-09-23 14:25 | NUR ---
PT DAUGHTER NOTIFIED ME SHE MADE DECISION TO PLACE HER MOM ON COMFORT CARE. DR. LONGORIA NOTIFIED OF HER REQUEST. DR. LONGORIA PLACED COMFORT CARE MEASURES.
--- NOTE | 2021-09-23 18:26 | NUR ---
SHIFT SUMMARY: PT A/O TO SELF, CONFUSED. TRANSITIONED TO COMFORT CARE TODAY. PAINAD 0/10 AT SHIFT END.
--- NOTE | 2021-09-24 06:30 | NUR ---
PT'S DAUGHTER WANTS VITALS DONE ON PT WHEN ROUNDS ARE BEING DONE.
--- NOTE | 2021-09-24 10:18 | NUR ---
Spiritual Care Referral Visit. Pt. was resting peacefully, and genrally non responsive. Daughter of pt. was present. Provided a calming presence and offered emotional support to daughter. Prayed with pt. and daughter. Dasughter displayed catharsis. As pt. was still resting, I told daughter I would return. Will follow up later in day.
--- NOTE | 2021-09-24 15:25 | NUR ---
Pt. was resting her eyes, but listening and fully aware of conversation. Pts. daughter was present. I had promised to return, and connected with daughter at first. Daughter was unsettled by pts. diagnosis. Established rapport, provided a calming presence. Explored issues of carina and belief. Pt. began to respond. Pt. displayed evidence of engagement. Prayed with pt. and daughter. Was invited to return. I will monitor.
--- NOTE | 2021-09-25 04:01 | NUR ---
SHIFT SUMMARY PT CONTINUES TO BE COMFORT CARE. PT HAS MEPILEX DRESSING TO COCCYX WOUND. PT ALSO HAS MEPILEX DRESSING TO NEW WOUND ON HER BACK THAT IS ABOUT THE SIZE OF A NICKEL AND RED. PT HAS HX OF MS. IV IN L FOREARM. SUPRAPUBIC CATHETER PATENT. NOT MUCH OUTPUT PT HAS NOT BEEN TAKING IN A LOT OF FLUIDS. PT IS A&O X 1-2. WILL RESPOND TO NAME, BUT OTHERWISE PT DOES NOT RESPOND VERY MUCH. HX OF COPD, GERD, HYPOTENSION. DAUGHTER STAYING WITH PT IN THE ROOM. VERY PLEASANT AND HELPFUL. CALL LIGHT WITHIN REACH AND WILL CONTINUE TO MONITOR.
--- NOTE | 2021-09-25 07:00 | NUR ---
ASSUMED CARE OF PT- PT EYES ARE OPEN, BROW IS FURROWED, ASKED IF SHE WAS IN PAIN AND AHE NODDED. SPOKE TO DAUGHTER AND SHE REQUESTED THE IV MORPHINE BUT 1MG INSTEAD OF THE 2 MG THAT THE PT WAS RECIEVING. SPOKE TO HER ABOUT THE IMPORTANCE OF MANAGEING THE PT PAIN WITH ORAL MEDICATIONS, PER THE DAUGHTER THE PT BECAME KIARA NAUSEATED WITH THE SL ROXANOL. PT ASLO BECAME NAUSEATED WITH IV MORPHINE. MEDICATED THE PT WITH IV ZOFRAN, AND IV MORPHINE 1MG. PT PAIN SEEMED WELL MANAGED AFTER MEDS AND SHE SHOKK HER HEAD NO WHEN ASKED IF SHE WAS NAUSEATED. CALLED PALLIATIVE CARE TO ASK FOR ASSISTANCE FOR SYMPTOM MANAGEMENT, IV IS A LITTLE POSSITIONAL, WE MAY NOT ALWAYS HAVE IV AN OPTION FOR PAIN AND NAUSEA MANAGEMENT. SPOKE TO ABOUT THIS AND HE IS AWARE. RECOMENDED A SMALL DOSE OF PO ATIVAN FOR THE NAUSEA WITH THE ROXANOL NEXT TIME. AWAITING A CALL BACK FROM PALLIATIVE CARE FOR ASSISTANCE WITH SYMPTOM MANAGEMENT. PT DAUGHTER HAS REQUESTED THAT STAFF CONTINUE TO CHECK THE PT VITALS, SHE EXPRESSED CONCERN ABOUT THE PT HAVING AN ELEVATED HR ON MORNING VITALS. SPOKE TO HER ABOUT THE PRUPOSE OF COMFORT CARE AND SHE IS AWARE OF THIS, SHE WAS CONCERNED THE FLASH HR INDICATED THAT THE PT WAS IN PAIN. BERMEO SPOKE WITH HER ABOUT VS CHANGES THE PT GOES THROUGH THE DYING PROCESS. WILL CONTINUE TO PROVIDE EDUCATION AND SUPPORT TO THE DAUGHTER THE PT PROGRESSES. WILL SPEAK WITH [facility] ABOUT MORE EDUCATION FOR HER. PT REPOSITIONED TO LEFT SIDE LYING.
--- NOTE | 2021-09-25 09:00 | NUR ---
PT HAS NO S&S OF PAIN AT THIS TIME, REPOSITIONED TO RIGHT SIDE LYING. NO MOANS, GRIMMACE OR SIGNS OF DISCOMFORT WITH THE REPOSITIONING. WILL CTM.
--- NOTE | 2021-09-25 11:00 | NUR ---
PT REPOSITIONED TO HER BACK FLOATED ON PILLOWS. NO S&S OF PAIN OR DISTRESS, MULTIPLE FAMILY AT THE BEDSIDE. WILL CTM AND MEDICATE NEEDED.
--- NOTE | 2021-09-25 12:26 | NUR ---
[facility] follow up. Pt. had been experienceing fever. Pt. perked up when I arrived. Apparently I was able to get a reponse from pt. when family who were present could not. Pt. had family present. Offered emotional support to family. Prayed with pt. I notified staff to contact me if her status changed. I will monitor.
--- NOTE | 2021-09-25 13:00 | NUR ---
PT DAUGHTER CAME TO STAFF TO REQUEST PAIN MEDICATION. UPON ASSESSMENT PT WAS DISPLAYING NON-VERBAL SIGNS OF PAIN. SHE NODS WHENASKED IF SHE IS IN ANY PAIN. MEDICATED PER EMAR WITH IV PAIN MEDICATION.
--- NOTE | 2021-09-25 15:00 | NUR ---
COMFORT CARE NOTE- PT IN BED, SURROUNDED BY FAMILY,SPIRITUAL CARE VISITED EARLIER, PALLIATIVE CARE VISITED AND GAVE THE FAMILY SOME EDUCATIONAL INFORMATION TO READ. WE ARE NO LONGER DOING VITALS FOR THE PT.
--- NOTE | 2021-09-25 16:21 | NUR ---
COMFORT CARE NOTE- PT IN BED SHOULDERS AND ARMS ARE TENSE, SHE DOES NOT APPEAR TO BE RELAXED, DOES NOT SEEM TO BE EXTREMELY PAINFULL. SPOKE TO PT FAMILY ABOUT TRYING THE ORAL ROXANOL THIS TIME AND SHE AGREED. MEDICATED WITH 5MG ROXANOL.
--- NOTE | 2021-09-25 17:45 | NUR ---
COMFORT CARE NOTE- PT HAS SEVERAL FAMILY AT THE BEDSIDE, LIGHTS ARE OFF, ROOM IS QUIET, NO S&S OF PAIN OR DISTRESS NOTED AT THIS TIME WILL CTM.
--- NOTE | 2021-09-25 18:02 | NUR ---
SHIFT SUMMARY- PT ON COMFORT CARE, FAMILY AT THE BEDSIDE, PROVIDED EDUCATION T/O THE DAY ABOUT THEDEATH AND DYING PROCESS AND WHAT TO EXPECT. NO LONGER DOING VITALS ON THE PT, 5MG ROXANOL SEEMED TO WORK WELL THIS EVENING WITH NO APPARENT NAUSEA. PT REPOSITIONED Q2 HOURS, PT TOLLERATES REPOSITIONING WELL. PT CURRENTLY IN BED WITH FAMILY AT HER SIDE, NO S&S OF DISTRESS. WILL CTM AND PASS ON TO THE NIGHT RN.
--- NOTE | 2021-09-25 18:03 | NUR ---
Pt is actively dying today. Her daugher is struggling with this. I spent time answering her questions, and gave her a hospice booklet. She does v/u regareding understanding a quiet, calm invironment. Materials of comfort care left with daughter.
--- NOTE | 2021-09-25 18:32 | NUR ---
COMFORT CARE NOTE- PT EXIBITS NO SIGN OF NAUSEA WITH THE ROXANOL AT THIS TIME. MEDICATED WITH ANOTHER 5MG ROXANOL PER FAMILY REQUEST TO KEEP ON TOP OF THE PAIN. WILL CTM.
--- NOTE | 2021-09-25 20:00 | NUR ---
COMFORT CARE APPEARS TO BE RESTING WITHOUT ANY NEEDS AT THIS TIME. FAMILY AT BEDSIDE. BED IN LOWEST POSITION.
--- NOTE | 2021-09-26 02:00 | NUR ---
COMFORT CARE APPEARED ANXIOUS. MEDICATED PER EMAR. FAMILY AT BEDSIDE. BED IN LOWEST POSITION. PRIOR TO EXITING ROOM PATIENT APPEARS MUCH MORE CALM.
--- NOTE | 2021-09-26 04:00 | NUR ---
COMFORT CARE CHANGES IN BREATHING; HAVING APNEIC EPISODES WELL TIMES OF INCREASED BREATHING. APPEARS TO BE RESTING WELL AFTER PAIN MANAGMENT. DAUGHTER AT BEDSIDE. BED IN LOWEST POSITION.
--- NOTE | 2021-09-26 04:27 | NUR ---
SHIFT SUMMARY RESPONDS TO SOME PAINFUL STIMULI. NO VERBAL RESPONSE. MEDICATED PER EMAR FOR ANXIETY/PAIN. FAMILY REMAINED AT BEDSIDE T/O SHIFT. APPEARED TO HAVE BREATHING CHANGES OVERNIGHT; PERIODS OF APNEA AND INCREASED RESPIRATIONS AT TIMES. BED REMAINED IN LOWEST POSITION. REPORT TO ONCOMING RN.
--- NOTE | 2021-09-26 06:00 | NUR ---
COMFORT CARE APPEARS TO BE HAVING BREATHING CHANGES. DAUGHTER WITH CONCERNS THAT SHE MAYBE IN PAIN. WILL RE-ASSESS IN 15-30 MINS. BED IN [facility].
--- NOTE | 2021-09-26 06:45 | NUR ---
COMFORT CARE CONTINUING TO GIVE SUPPORTIVE CARE TO DAUGHTER AT BEDSIDE. ENCOURAGING HER WITH PROCESS DURING END OF LIFE. PATIENTS BREATHING APPEARS MUCH MORE APNEIC AT THIS TIME. GIVEN SOUND MACHINE FOR COMFORT. NO OTHER NEEDS AT THIS TIME. BED IN LOWEST
--- NOTE | 2021-09-26 07:37 | NUR ---
PATIENT AT 0720, DAUGHTER AT BEDSIDE. DR. LONGORIA NOTIFIED. DECLINED [employer] AT THIS TIME.
--- NOTE | 2021-09-26 08:56 | NUR ---
POST MORTEM CARE COMPLETE. AWAITING MORTUARY TRANSPLANTER.
== END 2021-09-26 07:20 | DRG 193 ==
LOC: ER 11:35 → MEDS 13:38 → ERHOLD 13:38 → MEDS 15:42
PROVIDERS: Emergency Medicine; ADMIT Family Medicine
DX: J18.9 Pneumonia, unspecified organism (principal); E43 Unspecified severe protein-calorie malnutrition; R62.7 Adult failure to thrive; Z20.822 Contact with and (suspected) exposure to COVID-19; Z66 Do not resuscitate; Z51.5 Encounter for palliative care; E87.6 Hypokalemia; Z68.22 Body mass index [BMI] 22.0-22.9, adult; J43.1 Panlobular emphysema; G35 Multiple sclerosis; I10 Essential (primary) hypertension; G47.33 Obstructive sleep apnea (adult) (pediatric); M19.90 Unspecified osteoarthritis, unspecified site; F32.A Depression, unspecified; K21.9 Gastro-esophageal reflux disease without esophagitis; Z28.21 Immunization not carried out because of patient refusal; Z98.890 Other specified postprocedural states; Z93.50 Unspecified cystostomy status; Z88.8 Allergy status to other drugs, medicaments and biological substances; Z79.899 Other long term (current) drug therapy
CPT/HCPCS: 0241U; 36415; 71045; 80053; 80069; 83605; 83735; 83880; 84484; 85025; 87040; 93005; 93010; 96365; 96375; 97161; 97530; 99285-25; A9270; J0456; J0696; J1650; J1940; J2060; J2270; J2405; J7050